=== PATIENT | male | born 1960 | race African-American/Black ===

== ENCOUNTER 2017-03-19 13:14 | Inpatient (IN) | payer OTHER ==
[2017-03-19 17:15] VITALS: BMI 27.9
[2017-03-19] MEDS ORDERED: MAGNESIUM CITRATE 300 ML BOTTLE PO PRN (18:44)
[2017-03-19] MEDS ORDERED: MAG HYDROX/AL HYDROX/SIMETH 30 ML UNIT-DOSE CUP PO PRN (18:44)
[2017-03-19] MEDS ORDERED: ACETAMINOPHEN 325 MG TABLET (FP) PO PRN (18:44)
[2017-03-19] MEDS ORDERED: NICOTINE POLACRILEX 2 MG GUM BC PRN (18:44)
[2017-03-19] MEDS ORDERED: IBUPROFEN 400 MG TABLET (FP) PO PRN (18:44)
[2017-03-19] MEDS ORDERED: MENTHOL/PHENOL 1 EACH UD MM PRN (18:44)
[2017-03-19] MEDS ORDERED: guaiFENesin/D-METHORPHAN HB 10 ML UNIT-DOSE CUPS PO PRN (18:44)
[2017-03-19] MEDS ORDERED: chlordiazePOXIDE HCL 25 MG CAPSULE PO PRN (18:44)
[2017-03-19] MEDS ORDERED: P-EPHED 60MG/TRIPROLIDI 2.5MG TABLET PO PRN (18:44)
[2017-03-19] MEDS ORDERED: MAGNESIUM HYDROX 2400MG/30ML ORAL SUSPENSION 30 ML CUP PO PRN (18:44)
[2017-03-19] MEDS ORDERED: LOPERAMIDE HCL 2 MG CAPSULE PO PRN (18:44)
--- NOTE | 2017-03-19 18:44 | HP ---
CIWA Score - CIWA Score Nausea/Vomitin-Mild Nausea/No Vomiting Muscle Tremors: 4-Moderate,w/Arms Extend Anxiety: 4-Mod. Anxious/Guarded Agitation: 4-Moderately Restless Paroxysmal Sweats: 1-Minimal Palms Moist Orientation: 0-Oriented Tacttile Disturbances: 1-Very Mild Itch/Numbness Auditory Disturbances: 0-None Visual Disturbances: 0-None Headache: 1-Very Mild CIWA-Ar Total Score: 16 Admission ROS BHS - HPI Chief Complaint: withdrawal sx Allergies/Adverse Reactions: Allergies Allergy/AdvReac Type Severity Reaction Status Date / Time No Known Allergies Allergy Verified 03/19/17 18:38 History of Present Illness: 56 years old male with long history of alcohol nicotine dependence has hypertension positive ppd is admitted to detox Exam Limitations: No Limitations - Ebola screening Have you traveled outside of the country in the last 21 days: No Have you had contact with anyone from an Ebola affected area: No Have you been sick,other than usual withdrawal symptoms: No Do you have a fever: No - Review of Systems Constitutional: Changes in sleep, Weight Stable EENT: reports: Blurred Vision (eye glasses) Respiratory: reports: No Symptoms reported Cardiac: reports: No Symptoms Reported GI: reports: Nausea, Poor Fluid Intake, Abdominal cramping : reports: No Symptoms Reported Musculoskeletal: reports: Joint Pain (right knee) Integumentary: reports: No Symptoms Reported Neuro: reports: Tremors Endocrine: reports: No Symptoms Reported Hematology: reports: No Symptoms Reported Psychiatric: reports: Judgement Intact, Mood/Affect Appropiate, Orientated x3 Other Systems: Reviewed and Negative Patient History - Patient Medical History Hx Anemia: Yes (IN THE PAST) Hx Asthma: No Hx Chronic Obstructive Pulmonary Disease (COPD): No Hx Cancer: No Hx Cardiac Disorders: No Hx Hypertension: Yes (not currently on meds.) Hx Hypercholesterolemia: No Hx Pacemaker: No HX Cerebrovascular Accident: No Hx Seizures: No Hx Dementia: No Hx Diabetes: No Hx Gastrointestinal Disorders: No Hx Liver Disease: No Hx Genitourinary Disorders: No Hx Sexually Transmitted Disorders: No Hx Renal Disease (ESRD): No Hx Thyroid Disease: No Hx Human Immunodeficiency Virus (HIV): No (NEGATIVE HX) Hx Hepatitis C: No Hx Depression: No Hx Suicide Attempt: No Hx Bipolar Disorder: No Hx Schizophrenia: No - Patient Surgical History Past Surgical History: No Hx Neurologic Surgery: No Hx Cataract Extraction: No Hx Cardiac Surgery: No Hx Lung Surgery: No Hx Breast Surgery: No Hx Breast Biopsy: No Hx Abdominal Surgery: No Hx Appendectomy: No Hx Cholecystectomy: No Hx Genitourinary Surgery: No Hx Orthopedic Surgery: No - PPD History Previous Implant?: Yes Documented Results: Positive w/o proof Implanted On Prior [facility] Admission?: No Results: CXR(-)01/25/15 PPD to be Administered?: No - Smoking Cessation Smoking history: Current every day smoker Have you smoked in the past 12 months: Yes Aproximately how many cigarettes per day: 10 Cigars Per Day: 0 Hx Chewing Tobacco Use: No Initiated information on smoking cessation: Yes 'Breaking Loose' booklet given: 03/19/17 - Substance & Tx. History Hx Alcohol Use: Yes Hx Substance Use: Yes Substance Use Type: Alcohol, Cocaine Hx Substance Use Treatment: Yes (08/2016 [facility] - Substances Abused Alcohol-vodka/beer Route: Oral Frequency: Daily Amount used: 2 pts./2 (40 oz.) Age of first use: 19 Date of Last Use: 03/18/17 Family Disease History - Family Disease History Family Disease History: Other: Father (HTN), Mother (HTN-), Brother (HTN ) Admission Physical Exam S - Vital Signs Vital Signs: Vital Signs - 24 hr 03/19/17 17:14 Temperature 98.8 F Pulse Rate 73 Respiratory 18 Rate Blood Pressure 158/102 - Physical General Appearance: Yes: Nourished, Appropriately Dressed, Mild Distress, Tremorous, Irritable, Sweating, Anxious HEENTM: Yes: Hearing grossly Normal, Normal ENT Inspection, Normocephalic, Normal Voice Respiratory: Yes: Chest Non-Tender, Lungs Clear, Normal Breath Sounds, No Respiratory Distress, No Accessory Muscle Use Neck: Yes: Supple, Trachea in good position Breast: Yes: Breasts Symetrical Cardiology: Yes: Regular Rhythm, Regular Rate, S1, S2 Abdominal: Yes: Normal Bowel Sounds, Non Tender, Soft Genitourinary: Yes: Within Normal Limits Back: Yes: Normal Inspection Musculoskeletal: Yes: full range of Motion, Gait Steady Extremities: Yes: Normal Capillary Refill, Normal Inspection, Normal Range of Motion, Non-Tender, Tremors Neurological: Yes: Fully Oriented, Alert, Motor Strength 5/5, Normal Mood/Affect , Normal Response Integumentary: Yes: Warm Lymphatic: Yes: Within Normal Limits - Diagnostic (1) Alcohol dependence with uncomplicated withdrawal Current Visit: Yes Status: Acute (2) Nicotine dependence Current Visit: Yes Status: Acute Qualifiers: Nicotine product type: cigarettes Substance use status: in withdrawal Qualified Code(s): F17.213 - Nicotine dependence, cigarettes, with withdrawal (3) Essential hypertension Current Visit: Yes Status: Chronic Cleared for Admission [facility] - Detox or Rehab [facility] Level of Care: Medically Managed Detox Regimen/Protocol: Librium [facility] Breath Alcohol Content Breath Alcohol Content: 0 Urine Drug Screen - Results Drug Screen Negative: No Urine Drug Screen Results: EVETTE-Cocaine
[2017-03-19] MEDS ORDERED: cloNIDine HCL 0.1 MG TABLET PO PRN (18:46)
[2017-03-19 23:19] LABS: URINE APPEARANCE CLEAR; URINE BILIRUBIN NEGATIVE (NEGATIVE); URINE BLOOD NEGATIVE (NEGATIVE); URINE COLOR YELLOW; URINE GLUCOSE (UA) NEGATIVE (NEGATIVE); URINE KETONE NEGATIVE (NEGATIVE); URINE LEUK ESTERASE NEGATIVE (NEGATIVE); URINE NITRITE NEGATIVE (NEGATIVE); URINE PROTEIN NEGATIVE (NEGATIVE); URINE UROBILINOGEN NEGATIVE mg/dL (0.2-1.0)
[2017-03-19] MEDS: MINERAL OIL/PETROLAT/WATER TOPICAL CREAM 113 GM JAR TP SCH (23:31)
[2017-03-19] MEDS: chlordiazePOXIDE HCL 25 MG CAPSULE PO SCH (23:31)
[2017-03-19] MEDS: THIAMINE HCL 100 MG TABLET (FP) PO SCH (23:31)
[2017-03-20] MEDS: chlordiazePOXIDE HCL 25 MG CAPSULE PO SCH ×4 (06:02→23:13)
--- NOTE | 2017-03-20 09:25 | PN ---
S CIWA - CIWA Score Nausea/Vomitin Muscle Tremors: 3 Anxiety: 3 Agitation: 3 Paroxysmal Sweats: 3 Orientation: 0-Oriented Tacttile Disturbances: 1-Very Mild Itch/Numbness Auditory Disturbances: 0-None Visual Disturbances: 0-None Headache: 1-Very Mild CIWA-Ar Total Score: 17 S Progress Note (SOAP) Subjective: nausea, sweats, interrupetd sleep, anxiety, tremors Objective: 03/20/17 09:24 Vital Signs - 8 hr 03/20/17 03/20/17 03:30 05:44 Temperature 96.4 F L Pulse Rate 66 Respiratory 18 16 Rate Blood Pressure 129/75 Laboratory Tests 03/19/17 21:23 Urine Color Yellow Urine Appearance Clear Urine pH 6.0 Ur Specific [place] 1.020 Urine Protein Negative Urine Glucose (UA) Negative Urine Ketones Negative Urine Blood Negative Urine Nitrite Negative Urine Bilirubin Negative Urine Urobilinogen Negative labs still pending Assessment: 03/20/17 09:25 withdrawal sx cont detox, check labs, fluids, encourage ambualtion
[2017-03-20 10:35] LABS: ALBUMIN 3.1 g/dl (3.4-5.0); ALK PHOS 86 U/L (45-117); ANION GAP 6 (8-16); CALCIUM 8.5 mg/dL (8.5-10.1); CO2 28 mmol/L (21-32); CREATININE 1.2 mg/dL (0.7-1.3); GLUCOSE,RANDOM 94 mg/dL (74-106); SGOT/AST 19 U/L (15-37); SGPT/ALT 29 U/L (12-78); TOT PROT 6.3 g/dl (6.4-8.2)
[2017-03-20] MEDS: PRENATAL VITAMINS W/ FOLIC ACID TABLET (FP) PO SCH (10:42)
[2017-03-20] MEDS: NICOTINE 14 MG/24 HOURS TOPICAL PATCH TD SCH (10:42)
[2017-03-20 10:49] LABS: MCH 22.7 pg (25.7-33.7); MCHC 30.6 g/dl (32.0-35.9); MEAN CELL VOLUME 74.3 fl (80-96); MEAN PLT VOLUME 9.9 fl (7.5-11.1); PLATELET COUNT 217 K/MM3 (134-434); RDW 15.3 % (11.9-15.9); WHITE BLOOD COUNT 8.3 K/mm3 (4.0-10.0)
--- NOTE | 2017-03-20 13:03 | EKG ---
Test Reason : Blood Pressure : / mmHG Vent. Rate : 060 BPM Atrial Rate : 060 BPM P-R Int : 146 ms QRS Dur : 082 ms QT Int : 434 ms P-R-T Axes : 032 035 022 degrees QTc Int : 434 ms NORMAL SINUS RHYTHM NORMAL ECG NO PREVIOUS ECGS AVAILABLE Confirmed by DENISE SNYDER MD ([id number]) on 03/20/2017 1:02:46 PM Referred By: Ashleigh ANGUIANO Confirmed By:DENISE SNYDER MD
[2017-03-20 18:39] LABS: URINE LEUK ESTERASE Negative (NEGATIVE)
[2017-03-20] MEDS: MINERAL OIL/PETROLAT/WATER TOPICAL CREAM 113 GM JAR TP SCH (22:55)
[2017-03-20] MEDS: THIAMINE HCL 100 MG TABLET (FP) PO SCH (23:25)
[2017-03-21] MEDS: chlordiazePOXIDE HCL 25 MG CAPSULE PO SCH ×3 (06:24→17:59)
[2017-03-21] MEDS: NICOTINE 14 MG/24 HOURS TOPICAL PATCH TD SCH (11:02)
[2017-03-21] MEDS: PRENATAL VITAMINS W/ FOLIC ACID TABLET (FP) PO SCH (11:02)
--- NOTE | 2017-03-21 15:33 | PN ---
[facility] CIWA - CIWA Score Nausea/Vomitin-Mild Nausea/No Vomiting Muscle Tremors: 4-Moderate,w/Arms Extend Anxiety: 4-Mod. Anxious/Guarded Agitation: 4-Moderately Restless Paroxysmal Sweats: 3 Orientation: 0-Oriented Tacttile Disturbances: 1-Very Mild Itch/Numbness Auditory Disturbances: 0-None Visual Disturbances: 0-None Headache: 1-Very Mild CIWA-Ar Total Score: 18 BHS Progress Note (SOAP) Subjective: Anxious, sweating, interrupted sleep, nausea Objective: 03/21/17 15:33 Last Vital Signs Temp Pulse Resp BP Pulse Ox 98.1 F 74 18 150/87 03/21/17 13:55 03/21/17 13:55 03/21/17 13:55 03/21/17 13:55 Laboratory Tests 03/19/17 03/20/17 03/20/17 21:23 07:54 07:54 WBC 8.3 RBC 4.91 Hgb 11.1 L D Hct 36.5 MCV 74.3 L MCH 22.7 L MCHC 30.6 L RDW 15.3 Plt Count 217 MPV 9.9 Sodium 141 Potassium 3.9 Chloride 107 Carbon Dioxide 28 Anion Gap 6 L BUN 17 Creatinine 1.2 Creat Clearance w eGFR > 60 Random Glucose 94 D Calcium 8.5 Total Bilirubin 1.0 D AST 19 D ALT 29 D Alkaline Phosphatase 86 Total Protein 6.3 L D Albumin 3.1 L D Urine Color Yellow Urine Appearance Clear Urine pH 6.0 Ur Specific [place] 1.020 Urine Protein Negative Urine Glucose (UA) Negative Urine Ketones Negative Urine Blood Negative Urine Nitrite Negative Urine Bilirubin Negative Urine Urobilinogen Negative Ur Leukocyte Esterase Negative RPR Titer 03/20/17 07:54 WBC RBC Hgb Hct MCV MCH MCHC RDW Plt Count MPV Sodium Potassium Chloride Carbon Dioxide Anion Gap BUN Creatinine Creat Clearance w eGFR Random Glucose Calcium Total Bilirubin AST ALT Alkaline Phosphatase Total Protein Albumin Urine Color Urine Appearance Urine pH Ur Specific [place] Urine Protein Urine Glucose (UA) Urine Ketones Urine Blood Urine Nitrite Urine Bilirubin Urine Urobilinogen Ur Leukocyte Esterase RPR Titer Nonreactive Labs noted Assessment: 03/21/17 15:35 Withdrawal symptoms Plan: Continue detox Encouraged to drink lots of water
[2017-03-21] MEDS: chlordiazePOXIDE 5 MG CAPSULE PO SCH (23:05)
[2017-03-21] MEDS: MINERAL OIL/PETROLAT/WATER TOPICAL CREAM 113 GM JAR TP SCH (23:05)
[2017-03-21] MEDS: THIAMINE HCL 100 MG TABLET (FP) PO SCH (23:06)
[2017-03-22] MEDS: chlordiazePOXIDE 5 MG CAPSULE PO SCH ×3 (06:18→18:45)
[2017-03-22] MEDS: NICOTINE 14 MG/24 HOURS TOPICAL PATCH TD SCH (10:47)
[2017-03-22] MEDS: PRENATAL VITAMINS W/ FOLIC ACID TABLET (FP) PO SCH (10:47)
--- NOTE | 2017-03-22 14:48 | PN ---
S Progress Note (SOAP) Subjective: Sweating, anxious, nausea Objective: 03/22/17 14:45 Last Vital Signs Temp Pulse Resp BP Pulse Ox 98.1 F 78 18 140/100 03/22/17 14:40 03/22/17 14:40 03/22/17 14:40 03/22/17 14:40 htn noted Laboratory Tests 03/19/17 03/20/17 03/20/17 21:23 07:54 07:54 WBC 8.3 RBC 4.91 Hgb 11.1 L D Hct 36.5 MCV 74.3 L MCH 22.7 L MCHC 30.6 L RDW 15.3 Plt Count 217 MPV 9.9 Sodium 141 Potassium 3.9 Chloride 107 Carbon Dioxide 28 Anion Gap 6 L BUN 17 Creatinine 1.2 Creat Clearance w eGFR > 60 Random Glucose 94 D Calcium 8.5 Total Bilirubin 1.0 D AST 19 D ALT 29 D Alkaline Phosphatase 86 Total Protein 6.3 L D Albumin 3.1 L D Urine Color Yellow Urine Appearance Clear Urine pH 6.0 Ur Specific [place] 1.020 Urine Protein Negative Urine Glucose (UA) Negative Urine Ketones Negative Urine Blood Negative Urine Nitrite Negative Urine Bilirubin Negative Urine Urobilinogen Negative Ur Leukocyte Esterase Negative RPR Titer 03/20/17 07:54 WBC RBC Hgb Hct MCV MCH MCHC RDW Plt Count MPV Sodium Potassium Chloride Carbon Dioxide Anion Gap BUN Creatinine Creat Clearance w eGFR Random Glucose Calcium Total Bilirubin AST ALT Alkaline Phosphatase Total Protein Albumin Urine Color Urine Appearance Urine pH Ur Specific [place] Urine Protein Urine Glucose (UA) Urine Ketones Urine Blood Urine Nitrite Urine Bilirubin Urine Urobilinogen Ur Leukocyte Esterase RPR Titer Nonreactive Labs noted Assessment: 03/22/17 14:46 Withdrawal symptoms Noted with htn, is on clonidine prn Plan: Continue detox Encouraged to drink lots of water HTN: patient has h/o htn, will d/c prn clonidine, give clonidine 0.1mg PO x 1 dose, start norvasc 5mg PO daily in AM
[2017-03-22] MEDS ORDERED: cloNIDine HCL 0.1 MG TABLET PO ONE (14:50)
[2017-03-22] MEDS: MINERAL OIL/PETROLAT/WATER TOPICAL CREAM 113 GM JAR TP SCH (22:45)
[2017-03-22] MEDS: THIAMINE HCL 100 MG TABLET (FP) PO SCH (22:46)
[2017-03-22] MEDS: chlordiazePOXIDE HCL 10 MG CAPSULE PO SCH (22:46)
[2017-03-23] MEDS: chlordiazePOXIDE HCL 10 MG CAPSULE PO SCH ×2 (07:54→10:15)
[2017-03-23] MEDS ORDERED: amLODIPine BESYLATE 5 MG TABLET (FP) PO SCH (10:00)
[2017-03-23] MEDS: NICOTINE 14 MG/24 HOURS TOPICAL PATCH TD SCH (10:14)
[2017-03-23] MEDS: PRENATAL VITAMINS W/ FOLIC ACID TABLET (FP) PO SCH (10:14)
[2017-03-23 11:02] VITALS: BP 144/97; PULSE 68; TEMP 98.1
--- NOTE | 2017-03-23 12:09 | DS ---
[facility] Detox Discharge Summary Admission Date: 03/19/17 Discharge Date: 03/23/17 - History Present History: Alcohol Dependence, Cocaine Dependence - Physical Exam Results Vital Signs: Vital Signs Temperature 98.1 F 03/23/17 10:00 Pulse Rate 68 03/23/17 10:00 Respiratory Rate 18 03/23/17 10:00 Blood Pressure 144/97 03/23/17 10:00 O2 Sat by Pulse Oximetry (%) Pertinent Admission Physical Exam Findings: Withdrawal sx Laboratory Last Values WBC 8.3 K/mm3 (4.0-10.0) 03/20/17 07:54 RBC 4.91 M/mm3 (4.00-5.60) 03/20/17 07:54 Hgb 11.1 GM/dL (11.7-16.9) L D 03/20/17 07:54 Hct 36.5 % (35.4-49) 03/20/17 07:54 MCV 74.3 fl (80-96) L 03/20/17 07:54 MCH 22.7 pg (25.7-33.7) L 03/20/17 07:54 MCHC 30.6 g/dl (32.0-35.9) L 03/20/17 07:54 RDW 15.3 % (11.9-15.9) 03/20/17 07:54 Plt Count 217 K/MM3 (134-434) 03/20/17 07:54 MPV 9.9 fl (7.5-11.1) 03/20/17 07:54 Sodium 141 mmol/L (136-145) 03/20/17 07:54 Potassium 3.9 mmol/L (3.5-5.1) 03/20/17 07:54 Chloride 107 mmol/L (98-107) 03/20/17 07:54 Carbon Dioxide 28 mmol/L (21-32) 03/20/17 07:54 Anion Gap 6 (8-16) L 03/20/17 07:54 BUN 17 mg/dL (7-18) 03/20/17 07:54 Creatinine 1.2 mg/dL (0.7-1.3) 03/20/17 07:54 Creat Clearance w eGFR > 60 (>60) 03/20/17 07:54 Random Glucose 94 mg/dL (74-106) D 03/20/17 07:54 Calcium 8.5 mg/dL (8.5-10.1) 03/20/17 07:54 Total Bilirubin 1.0 mg/dL (0.2-1.0) D 03/20/17 07:54 AST 19 U/L (15-37) D 03/20/17 07:54 ALT 29 U/L (12-78) D 03/20/17 07:54 Alkaline Phosphatase 86 U/L (45-117) 03/20/17 07:54 Total Protein 6.3 g/dl (6.4-8.2) L D 03/20/17 07:54 Albumin 3.1 g/dl (3.4-5.0) L D 03/20/17 07:54 Urine Color Yellow 03/19/17 21:23 Urine Appearance Clear 03/19/17 21:23 Urine pH 6.0 (5.0-8.0) 03/19/17 21:23 Ur Specific [place] 1.020 (1.001-1.035) 03/19/17 21:23 Urine Protein Negative (NEGATIVE) 03/19/17 21:23 Urine Glucose (UA) Negative (NEGATIVE) 03/19/17 21:23 Urine Ketones Negative (NEGATIVE) 03/19/17 21:23 Urine Blood Negative (NEGATIVE) 03/19/17 21:23 Urine Nitrite Negative (NEGATIVE) 03/19/17 21:23 Urine Bilirubin Negative (NEGATIVE) 03/19/17 21:23 Urine Urobilinogen Negative mg/dL (0.2-1.0) 03/19/17 21:23 Ur Leukocyte Esterase Negative (NEGATIVE) 03/19/17 21:23 RPR Titer Nonreactive (NONREACTIVE) 03/20/17 07:54 labs noted - Treatment Hospital Course: Detox Protocol Followed, Detoxed Safely, Responded well, Discharged Condition Good, Rehab Referral Accepted Patient has Accepted a Rehab Referral to: Rehab @ [facility] - Medication Discharge Medications: Ambulatory Orders Amlodipine Besylate [Norvasc -] 5 mg PO DAILY 03/23/17 - Diagnosis (1) Alcohol dependence with uncomplicated withdrawal Status: Acute (2) Cocaine dependence with withdrawal Status: Chronic (3) Essential hypertension Status: Chronic - AMA Did Patient Leave Against Medical Advice: No
== END 2017-03-23 10:15 | disposition other institution (70) | DRG 774 ==
LOC: YASAS 13:14 → Y6N 18:59
PROVIDERS: ADMIT Internal Medicine; ATTEND Internal Medicine
PROC: HZ2ZZZZ Detoxification Services for Substance Abuse Treatment (ICD-10-PCS; principal; 2017-03-19)
DX: F10.230 Alcohol dependence with withdrawal, uncomplicated (principal); F14.20 Cocaine dependence, uncomplicated; F17.213 Nicotine dependence, cigarettes, with withdrawal; I10 Essential (primary) hypertension; K21.9 Gastro-esophageal reflux disease without esophagitis; Z86.2 Personal history of diseases of the blood and blood-forming organs and certain disorders involving the immune mechanism
CPT/HCPCS: 36415; 71020-TC; 80053; 81003; 85027; 86593; 93005; 93010

== ENCOUNTER 2017-03-23 11:29 | Inpatient (IN) | payer OTHER ==
[2017-03-23] MEDS ORDERED: MAGNESIUM HYDROX 2400MG/30ML ORAL SUSPENSION 30 ML CUP PO PRN (11:45)
[2017-03-23] MEDS ORDERED: MENTHOL/PHENOL 1 EACH UD MM PRN (11:45)
[2017-03-23] MEDS ORDERED: ACETAMINOPHEN 325 MG TABLET (FP) PO PRN (11:45)
[2017-03-23] MEDS ORDERED: MAG HYDROX/AL HYDROX/SIMETH 30 ML UNIT-DOSE CUP PO PRN (11:45)
[2017-03-23] MEDS ORDERED: guaiFENesin/D-METHORPHAN HB 10 ML UNIT-DOSE CUPS PO PRN (11:45)
[2017-03-23] MEDS ORDERED: NICOTINE POLACRILEX 2 MG GUM BUC PRN (11:45)
[2017-03-23] MEDS ORDERED: IBUPROFEN 400 MG TABLET (FP) PO PRN (11:45)
[2017-03-23] MEDS ORDERED: LOPERAMIDE HCL 2 MG CAPSULE PO PRN (11:45)
[2017-03-23] MEDS ORDERED: MAGNESIUM CITRATE 300 ML BOTTLE PO PRN (11:45)
--- NOTE | 2017-03-23 12:03 | HP ---
[facility] Rehab Assess/Revision - Admission History Admitted to Rehab from: [facility] Date of Admission to Rehab: 03/23/17 - Vital signs Vital Signs: Vital Signs Period Temp Pulse Resp BP Sys/Hines Pulse Ox Last 24 Hr 98.2 F 73 18 138/97 - Findings Detox History & Physical reviewed: Yes Concur with findings: Yes Inpatient Rehab Admission - Initial Determination Are CD services needed?: Yes Free of communicable disease: Yes Not in need of hospitalization: Yes - Rehab Admission Criteria Previous failed treatment: Yes Poor recovery environment: Yes Comorbidities: Yes Lacks judgement: Yes Patient is meeting Inpatient Rehab admission criteria:: Yes
[2017-03-23 12:12] VITALS: BMI 28.5
[2017-03-23] MEDS: THIAMINE HCL 100 MG TABLET (FP) PO SCH (21:52)
[2017-03-24] MEDS: P-EPHED 60MG/TRIPROLIDI 2.5MG TABLET PO PRN (06:59)
[2017-03-24] MEDS: amLODIPine BESYLATE 10 MG TABLET (FP) PO SCH ×2 (08:41→10:41)
[2017-03-24] MEDS: PRENATAL VITAMINS W/ FOLIC ACID TABLET (FP) PO SCH (10:41)
[2017-03-24] MEDS: NICOTINE 14 MG/24 HOURS TOPICAL PATCH TD SCH (10:41)
--- NOTE | 2017-03-24 14:38 | HP ---
Psychiatrist Admission - Data Date of interview: 03/24/17 Admission source: 6N Identifying data: This is the first [facility] admission for this 56 years old Black male, unemployed with no source of income, homeless Medical History: Significant for hypertension, PPD+, GERD and a history of treatment for anemia and of right knee injury 5 years ago. Smokes 10 cigarettes daily Psychiatric History: Denies history of previous psychiatric treatment Physical/Sexual Abuse/Trauma History: Denies history of verbal, physical or sexual abuse as wel as DV relationship. Additional Comment: Denies criminal history Vital Signs: Vital Signs - 24 hr 03/24/17 03/24/17 03/24/17 00:30 03:30 07:11 Temperature 98.3 F Pulse Rate 71 Respiratory 18 16 18 Rate Blood Pressure 145/91 03/24/17 03/24/17 10:00 11:20 Temperature Pulse Rate 76 78 Respiratory 16 Rate Blood Pressure 161/107 148/100 Allergies/Adverse Reactions: Allergies Allergy/AdvReac Type Severity Reaction Status Date / Time No Known Allergies Allergy Verified 03/19/17 18:38 Date of last physical exam: 03/19/17 Concur with the findings of this exam: Yes - Substance Abuse/Tx History Hx Alcohol Use: Yes Hx Substance Use: No Substance Use Type: Alcohol (Started drinking alcohol at age 19, consumes 2x 40oz of beer daily) Hx Substance Use Treatment: Yes (2-3 previous inpt detox & 2 inpt rehab) Mental Status Exam - Mental Status Exam Alert and Oriented to: Time, Place, Person Cognitive Function: Fair Patient Appearance: Well Groomed Mood: Hopeful, Euthymic Patient Behavior: Cooperative Speech Pattern: Clear Voice Loudness: Normal Thought Process: Intact, Goal Oriented Thought Disorder: Not Present Hallucinations: Denies Suicidal Ideation: Denies Homicidal Ideation: Denies Insight/Judgement: Fair Sleep: Poorly Muscle strength/Tone: Normal Gait/Station: Normal Psychiatric Findings - Problem List ([place] 1, 2,3) (1) Alcohol dependence Current Visit: Yes Status: Acute (2) Nicotine dependence Current Visit: No Status: Chronic Qualifiers: Nicotine product type: cigarettes Substance use status: in withdrawal Qualified Code(s): F17.213 - Nicotine dependence, cigarettes, with withdrawal (3) Alcohol-induced sleep disorder Current Visit: Yes Status: Acute (4) Essential hypertension Current Visit: No Status: Chronic (5) GERD (gastroesophageal reflux disease) Current Visit: No Status: Chronic Qualifiers: Esophagitis presence: without esophagitis Qualified Code(s): K21.9 - Gastro -esophageal reflux disease without esophagitis (6) History of anemia Current Visit: No Status: Chronic - Initial Treatment Plan Initial Treatment Plan: 1) Start Belsomra 10 mg po HS prn for insomnia. 2) Monitor progress
[2017-03-24] MEDS: THIAMINE HCL 100 MG TABLET (FP) PO SCH (21:13)
[2017-03-24] MEDS: SUVOREXANT 10 MG TABLET PO PRN (21:15)
[2017-03-25] MEDS: P-EPHED 60MG/TRIPROLIDI 2.5MG TABLET PO PRN (06:34)
[2017-03-25 06:48] VITALS: TEMP 98.2
[2017-03-25] MEDS: PRENATAL VITAMINS W/ FOLIC ACID TABLET (FP) PO SCH (09:45)
[2017-03-25] MEDS: amLODIPine BESYLATE 10 MG TABLET (FP) PO SCH (09:45)
[2017-03-25] MEDS: NICOTINE 14 MG/24 HOURS TOPICAL PATCH TD SCH (09:46)
[2017-03-25] MEDS: SUVOREXANT 10 MG TABLET PO PRN (22:03)
[2017-03-25] MEDS: THIAMINE HCL 100 MG TABLET (FP) PO SCH (22:03)
[2017-03-26] MEDS: PRENATAL VITAMINS W/ FOLIC ACID TABLET (FP) PO SCH (09:48)
[2017-03-26] MEDS: amLODIPine BESYLATE 10 MG TABLET (FP) PO SCH (09:49)
[2017-03-26] MEDS: NICOTINE 14 MG/24 HOURS TOPICAL PATCH TD SCH (09:49)
[2017-03-26] MEDS: P-EPHED 60MG/TRIPROLIDI 2.5MG TABLET PO PRN (09:50)
[2017-03-26 10:18] VITALS: BP 153/78; PULSE 77
--- NOTE | 2017-03-26 14:53 | PN ---
S Progress Note (SOAP) Subjective: Patient seen for c/o right knee pain. As per patient, he has torn meniscus and ligament in his knee and needs surgery a long time ago but he continues to work and ignore it. He reports having physical therapy in the past which works minimally as per patient. Patient is requesting mirtha bandage at this time and no longer requesting a cane. As per patient, his knee hurts whenever he bears weight on it. Objective: 03/26/17 14:50 Last Vital Signs Temp Pulse Resp BP Pulse Ox 98.2 F 77 18 153/78 03/26/17 06:50 03/26/17 09:30 03/26/17 06:50 03/26/17 09:30 Laboratory Tests 03/24/17 07:45 HIV 1&2 Antibody Screen Negative HIV P24 Antigen Negative Labs noted PE: right knee mild swelling Gait: slight limping noted Assessment: 03/26/17 14:51 Patient seen for right knee pain Plan: Right knee pain: mirtha bandage ordered at patient's request, encouraged motrin prn. Encouraged to follow up with his PCP and Orthopedist and to resume physical therapy post discharge.
== END 2017-03-26 15:50 | disposition left against medical advice (07) | DRG 58 ==
LOC: Y3W 11:29
PROVIDERS: ADMIT Psychiatry & Neurology Psychiatry; ATTEND Psychiatry & Neurology Psychiatry
PROC: HZ42ZZZ Group Counseling for Substance Abuse Treatment, Cognitive-Behavioral (ICD-10-PCS; principal; 2017-03-23)
DX: F10.282 Alcohol dependence with alcohol-induced sleep disorder (principal); F17.213 Nicotine dependence, cigarettes, with withdrawal; I10 Essential (primary) hypertension; K21.9 Gastro-esophageal reflux disease without esophagitis; M25.561 Pain in right knee; Z86.2 Personal history of diseases of the blood and blood-forming organs and certain disorders involving the immune mechanism
CPT/HCPCS: 36415; 87389

== ENCOUNTER 2017-05-05 07:00 | Inpatient (IN) | payer OTHER ==
--- NOTE | 2017-05-05 17:36 | HP ---
CIWA Score - CIWA Score Nausea/Vomitin-Mild Nausea/No Vomiting Muscle Tremors: 3 Anxiety: 3 Agitation: 3 Paroxysmal Sweats: 1-Minimal Palms Moist Orientation: 1-Uncertain about Date Tacttile Disturbances: 0-None Auditory Disturbances: 0-None Visual Disturbances: 0-None Headache: 1-Very Mild CIWA-Ar Total Score: 13 Admission ROS BHS - HPI Allergies/Adverse Reactions: Allergies Allergy/AdvReac Type Severity Reaction Status Date / Time No Known Allergies Allergy Verified 03/19/17 18:38 History of Present Illness: 56 y/o male here for detox from Alcohol and crack cocaine. Pt has a prolonged hx of substances and alcohol abuse. Pt endorses 9 years of sobriety because he relocated to areas with less negative influences. pt has had previous rehab and detox experiences. Hx of HTN, R knee torn meniscus Exam Limitations: No Limitations - Ebola screening Have you traveled outside of the country in the last 21 days: No Have you had contact with anyone from an Ebola affected area: No Have you been sick,other than usual withdrawal symptoms: No Do you have a fever: No - Review of Systems Constitutional: No Symptoms Reported EENT: reports: Nose Congestion Respiratory: reports: No Symptoms reported Cardiac: reports: No Symptoms Reported GI: reports: Nausea : reports: No Symptoms Reported Musculoskeletal: reports: No Symptoms Reported Integumentary: reports: No Symptoms Reported Endocrine: reports: [place] Hematology: reports: No Symptoms Reported Psychiatric: reports: No Sypmtoms Reported Patient History - Patient Medical History Hx Anemia: Yes (IN THE PAST) Hx Asthma: No Hx Chronic Obstructive Pulmonary Disease (COPD): No Hx Cancer: No Hx Cardiac Disorders: No Hx Hypertension: Yes (on Norvasc 10 mg. last taken a week ago) Hx Hypercholesterolemia: No Hx Pacemaker: No HX Cerebrovascular Accident: No Hx Seizures: No Hx Dementia: No Hx Diabetes: No Hx Gastrointestinal Disorders: No Hx Liver Disease: No Hx Genitourinary Disorders: No Hx Sexually Transmitted Disorders: No Hx Renal Disease (ESRD): No Hx Thyroid Disease: No Hx Human Immunodeficiency Virus (HIV): No (NEGATIVE HX) Hx Hepatitis C: No Hx Depression: No Hx Suicide Attempt: No Hx Bipolar Disorder: No Hx Schizophrenia: No - Patient Surgical History Past Surgical History: No Hx Neurologic Surgery: No Hx Cataract Extraction: No Hx Cardiac Surgery: No Hx Lung Surgery: No Hx Breast Surgery: No Hx Breast Biopsy: No Hx Abdominal Surgery: No Hx Appendectomy: No Hx Cholecystectomy: No Hx Genitourinary Surgery: No Hx Section: No Hx Orthopedic Surgery: No Anesthesia Reaction: No - PPD History Previous Implant?: Yes Documented Results: Positive w/o proof (Stated he was exposed in 1977 and was treated with INH. Now gets Xrays) Implanted On Prior [facility] Admission?: No Date: 04/03/17 (In [place], unsure of date) Results: CXR recent PPD to be Administered?: No - Reproductive History Patient is a Female of Child Bearing Age (11 -55 yrs old): No - Smoking Cessation Smoking history: Current every day smoker Have you smoked in the past 12 months: Yes Aproximately how many cigarettes per day: 10 Cigars Per Day: 0 Hx Chewing Tobacco Use: No Initiated information on smoking cessation: Yes 'Breaking Loose' booklet given: 05/05/17 - Substance & Tx. History Hx Alcohol Use: Yes Hx Substance Use: Yes (crack cocaine) Substance Use Type: Cocaine (crack cocaine - ) Hx Substance Use Treatment: Yes - Substances Abused Alcohol Route: Oral Frequency: Daily Amount used: 2 -3 (6 packs of 18oz beers), Ocassional 2 - 3 pints of vodka daily Age of first use: 19 Date of Last Use: 05/04/17 (was seen at [facility] for it) Crack Route: Inhalation Frequency: Daily Amount used: 4 - 5 grams (10 bags) Age of first use: 19 Date of Last Use: 05/04/17 Alprazolam (Xanax) Route: Oral Frequency: 3-6 times per week Amount used: 2 tabs Age of first use: 55 Date of Last Use: 04/27/17 Family Disease History - Family Disease History Family Disease History: Other: Father (HTN - ), Mother (HTN- ( stomach Ca)), Brother (HTN), Sister (HTN) Admission Physical Exam [facility] - Physical General Appearance: Yes: Mild Distress HEENTM: Yes: Nasal Congestion Respiratory: Yes: Chest Non-Tender, Lungs Clear, No Respiratory Distress, No Accessory Muscle Use Neck: Yes: No masses,lesions,Nodules Breast: Yes: Breast Exam Deferred Cardiology: Yes: Regular Rhythm, Regular Rate, S1, S2 Abdominal: Yes: Normal Bowel Sounds, Non Tender Genitourinary: Yes: Within Normal Limits Back: Yes: Within Normal Limits Musculoskeletal: Yes: Other (Pain to L foot/ankle, no swelling) Extremities: Yes: Within Normal Limits, Normal Capillary Refill Neurological: Yes: Fully Oriented, Alert Integumentary: Yes: Normal Color, Warm Lymphatic: Yes: Within Normal Limits - Diagnostic (1) Alcohol dependence with uncomplicated withdrawal Status: Acute (2) Cocaine dependence with withdrawal Status: Chronic (3) Essential hypertension Status: Chronic (4) History of anemia Status: Chronic (5) Nicotine dependence Status: Chronic Qualifiers: Nicotine product type: cigarettes Substance use status: in withdrawal Qualified Code(s): F17.213 - Nicotine dependence, cigarettes, with withdrawal Cleared for Admission [facility] - Detox or Rehab [facility] Level of Care: Medically Managed Detox Regimen/Protocol: Librium S Breath Alcohol Content Breath Alcohol Content: 0 Vital Signs - Vital Signs Vital Signs Refused: No Temperature: 96.9 F Temperature Source: Oral Pulse Rate: 81 Respiratory Rate: 20 Blood Pressure: 146/99 BP Location: Right Arm Blood Pressure Position: Sitting - Height Height: 6 ft - Weight Weight: 210 lb Weight Measurement Method: Standing Scale Body Mass Index (BMI): 28.5 Urine Drug Screen - Test Device Lot Number: [id number] Expiration Date: 01/22/19 - Control Is Test Valid: Yes - Results Drug Screen Negative: No Urine Drug Screen Results: EVETTE-Cocaine, BZO-Benzodiazepines
[2017-05-05 17:37] VITALS: BMI 28.5
[2017-05-05] MEDS ORDERED: LOPERAMIDE HCL 2 MG CAPSULE PO PRN (18:14)
[2017-05-05] MEDS ORDERED: IBUPROFEN 400 MG TABLET (FP) PO PRN (18:14)
[2017-05-05] MEDS ORDERED: MAGNESIUM HYDROX 2400MG/30ML ORAL SUSPENSION 30 ML CUP PO PRN (18:14)
[2017-05-05] MEDS ORDERED: MAG HYDROX/AL HYDROX/SIMETH 30 ML UNIT-DOSE CUP PO PRN (18:14)
[2017-05-05] MEDS ORDERED: MAGNESIUM CITRATE 300 ML BOTTLE PO PRN (18:14)
[2017-05-05] MEDS ORDERED: NICOTINE POLACRILEX 2 MG GUM BUC PRN (18:14)
[2017-05-05] MEDS ORDERED: hydrOXYzine PAMOATE 50 MG CAPSULE (FP) PO PRN (18:14)
[2017-05-05] MEDS ORDERED: ACETAMINOPHEN 325 MG TABLET (FP) PO PRN (18:14)
[2017-05-05] MEDS ORDERED: guaiFENesin/D-METHORPHAN HB 10 ML UNIT-DOSE CUPS PO PRN (18:14)
[2017-05-05] MEDS ORDERED: MENTHOL/PHENOL 1 EACH UD MM PRN (18:14)
[2017-05-05] MEDS ORDERED: P-EPHED 60MG/TRIPROLIDI 2.5MG TABLET PO PRN (18:14)
[2017-05-05] MEDS ORDERED: chlordiazePOXIDE HCL 25 MG CAPSULE PO PRN (18:14)
[2017-05-05] MEDS: THIAMINE HCL 100 MG TABLET (FP) PO SCH (23:00)
[2017-05-05] MEDS: chlordiazePOXIDE HCL 25 MG CAPSULE PO SCH (23:00)
[2017-05-06] MEDS: chlordiazePOXIDE HCL 25 MG CAPSULE PO SCH ×4 (05:52→22:08)
[2017-05-06 10:05] LABS: HEMATOCRIT 39.3 % (35.4-49); MCH 22.5 pg (25.7-33.7); MCHC 30.6 g/dl (32.0-35.9); MEAN CELL VOLUME 73.6 fl (80-96); MEAN PLT VOLUME 9.4 fl (7.5-11.1); PLATELET COUNT 223 K/MM3 (134-434); RBC 5.34 M/mm3 (4.00-5.60); RDW 15.3 % (11.9-15.9); WHITE BLOOD COUNT 5.8 K/mm3 (4.0-10.0)
[2017-05-06 10:19] LABS: CHLORIDE 110 mmol/L (98-107); POTASSIUM 4.2 mmol/L (3.5-5.1); SODIUM 144 mmol/L (136-145)
[2017-05-06 10:28] LABS: ALBUMIN 3.5 g/dl (3.4-5.0); ALK PHOS 115 U/L (45-117); ANION GAP 6 (8-16); BILIRUBIN,TOTAL 0.7 mg/dL (0.2-1.0); BLOOD UREA NITROGEN 21 mg/dL (7-18); CALCIUM 8.3 mg/dL (8.5-10.1); CO2 28 mmol/L (21-32); CREATININE 1.4 mg/dL (0.7-1.3); GLUCOSE,RANDOM 74 mg/dL (74-106); SGOT/AST 45 U/L (15-37); SGPT/ALT 42 U/L (12-78); TOT PROT 7.1 g/dl (6.4-8.2)
[2017-05-06] MEDS: PRENATAL VITAMINS W/ FOLIC ACID TABLET (FP) PO SCH (10:58)
[2017-05-06] MEDS: NICOTINE 14 MG/24 HOURS TOPICAL PATCH TD SCH (10:58)
[2017-05-06] MEDS: amLODIPine BESYLATE 5 MG TABLET (FP) PO SCH (10:58)
--- NOTE | 2017-05-06 11:08 | PN ---
[facility] CIWA - CIWA Score Nausea/Vomitin-No Nausea/No Vomiting Muscle Tremors: 4-Moderate,w/Arms Extend Anxiety: 4-Mod. Anxious/Guarded Agitation: 4-Moderately Restless Paroxysmal Sweats: 1-Minimal Palms Moist Orientation: 0-Oriented Tacttile Disturbances: 3-Moderate Itch/Numb/Burn Auditory Disturbances: 0-None Visual Disturbances: 0-None Headache: 0-None Present CIWA-Ar Total Score: 16 BHS Progress Note (SOAP) Subjective: ANXIETY,SWEATS,SLIGHT TREMORS,FATIGUE Objective: 05/06/17 11:10 Vital Signs Temperature 97.8 F 05/06/17 05:53 Pulse Rate 71 05/06/17 05:53 Respiratory Rate 18 05/06/17 05:53 Blood Pressure 121/74 05/06/17 05:53 O2 Sat by Pulse Oximetry (%) Laboratory Last Values WBC 5.8 K/mm3 (4.0-10.0) D 05/06/17 07:00 RBC 5.34 M/mm3 (4.00-5.60) 05/06/17 07:00 Hgb 12.0 GM/dL (11.7-16.9) 05/06/17 07:00 Hct 39.3 % (35.4-49) 05/06/17 07:00 MCV 73.6 fl (80-96) L 05/06/17 07:00 MCH 22.5 pg (25.7-33.7) L 05/06/17 07:00 MCHC 30.6 g/dl (32.0-35.9) L 05/06/17 07:00 RDW 15.3 % (11.9-15.9) 05/06/17 07:00 Plt Count 223 K/MM3 (134-434) 05/06/17 07:00 MPV 9.4 fl (7.5-11.1) 05/06/17 07:00 Sodium 144 mmol/L (136-145) 05/06/17 07:00 Potassium 4.2 mmol/L (3.5-5.1) 05/06/17 07:00 Chloride 110 mmol/L (98-107) H 05/06/17 07:00 Carbon Dioxide 28 mmol/L (21-32) 05/06/17 07:00 Anion Gap 6 (8-16) L 05/06/17 07:00 BUN 21 mg/dL (7-18) H D 05/06/17 07:00 Creatinine 1.4 mg/dL (0.7-1.3) H 05/06/17 07:00 Creat Clearance w eGFR 52.62 (>60) 05/06/17 07:00 Random Glucose 74 mg/dL (74-106) D 05/06/17 07:00 Calcium 8.3 mg/dL (8.5-10.1) L 05/06/17 07:00 Total Bilirubin 0.7 mg/dL (0.2-1.0) D 05/06/17 07:00 AST 45 U/L (15-37) H D 05/06/17 07:00 ALT 42 U/L (12-78) D 05/06/17 07:00 Alkaline Phosphatase 115 U/L (45-117) D 05/06/17 07:00 Total Protein 7.1 g/dl (6.4-8.2) 05/06/17 07:00 Albumin 3.5 g/dl (3.4-5.0) 05/06/17 07:00 Assessment: 05/06/17 11:10 WITHDRAWAL SX Plan: CONTINUE DETOX
--- NOTE | 2017-05-06 18:30 | CONSULT ---
[facility] Psychiatric Consult - Data Date of interview: 05/06/17 Admission source: [facility] Identifying data: One of multiple admissions to [facility] for this 56 y/o AA male seeking detoxification treatment on for alcohol,xanax and cocaine dependence.Patient is ,childless,domiciled,currently unemployed and supported on food stamps / odd jobs. Substance Abuse History: Confirmed by patient in this session.Details in current [facility] report . Smoking history: Current every day smoker. Have you smoked in the past 12 months: Yes. Aproximately how many cigarettes per day: 10. Cigars Per Day: 0. Hx Chewing Tobacco Use: No. Initiated information on smoking cessation: Yes. 'Breaking Loose' booklet given: 05/05/17. - Substance & Tx. History. Hx Alcohol Use: Yes. Hx Substance Use: Yes (crack cocaine). Substance Use Type: Cocaine (crack cocaine - ). Hx Substance Use Treatment: Yes. - Substances Abused. Alcohol. Route: Oral. Frequency: Daily. Amount used: 2 -3 (6 packs of 18oz beers), Ocassional 2 - 3 pints of vodka daily. Age of first use: 19. Date of Last Use: 05/04/17 (was seen at [facility] for it). Crack. Route: Inhalation. Frequency: Daily. Amount used: 4 - 5 grams (10 bags). Age of first use: 19. Date of Last Use: 05/04/17. Alprazolam (Xanax). Route: Oral. Frequency: 3-6 times per week. Amount used: 2 tabs. Age of first use: 55. Date of Last Use: 04/27/17 Medical History: Anemia,hypertension,GERD and positive PPD (treated with INH as per self-report).Reports history of right knee injury 5 years ago. Psychiatric History: Patient denies. Physical/Sexual Abuse/Trauma History: No reported history of abuse. Additional Comment: Urine Drug Screen Results: EVETTE-Cocaine, BZO- Benzodiazepines.Noted. Mental Status Exam - Mental Status Exam Alert and Oriented to: Time, Place, Person Cognitive Function: Good Patient Appearance: Well Groomed Mood: Hopeful, Euthymic Affect: Appropriate, Normal Range Patient Behavior: Appropriate, Cooperative Speech Pattern: Clear, Appropriate Voice Loudness: Normal Thought Process: Intact, Goal Oriented Thought Disorder: Not Present Hallucinations: Denies Suicidal Ideation: Denies Homicidal Ideation: Denies Insight/Judgement: Poor Sleep: Poorly, Difficulty falling asleep Appetite: Good Muscle strength/Tone: Normal Gait/Station: Normal Psychiatric Findings - Problem List ([place] 1, 2,3) (1) Alcohol dependence with uncomplicated withdrawal Current Visit: Yes Status: Acute (2) Sedative, hypnotic or anxiolytic dependence with withdrawal, uncomplicated Current Visit: Yes Status: Acute (3) Cocaine dependence with withdrawal Current Visit: Yes Status: Acute (4) Nicotine dependence Current Visit: Yes Status: Acute Qualifiers: Nicotine product type: cigarettes Substance use status: in withdrawal Qualified Code(s): F17.213 - Nicotine dependence, cigarettes, with withdrawal (5) Insomnia Current Visit: Yes Status: Acute - Initial Treatment Plan Initial Treatment Plan: Records revisited.Psychoeducation and support provided in this session.Detoxification protocol in effect.Sleep hygiene discussed.Emphasis is placed on benefits of attendance to daily group therapy, recreational activities and community meetings.Patient agrees.Ambien 10 mg po hs prn.Patient is made aware of potential for parasomnias.Consented (verbally) to this careplan.Observation.
[2017-05-06] MEDS: THIAMINE HCL 100 MG TABLET (FP) PO SCH (22:08)
[2017-05-06] MEDS: ZOLPIDEM TARTRATE 10 MG TABLET (PARK CARE ONLY) PO PRN (22:08)
--- NOTE | 2017-05-06 23:33 | EKG ---
Test Reason : Blood Pressure : / mmHG Vent. Rate : 081 BPM Atrial Rate : 081 BPM P-R Int : 148 ms QRS Dur : 086 ms QT Int : 384 ms P-R-T Axes : 068 058 032 degrees QTc Int : 446 ms NORMAL SINUS RHYTHM NONSPECIFIC ST AND T WAVE ABNORMALITY ABNORMAL ECG WHEN COMPARED WITH ECG OF 19-MAR-2017 19:50, T WAVE VARIATION Confirmed by KAMI SR MD ([id number]) on 05/06/2017 11:33:02 PM Referred By: Confirmed By:KAMI SR MD
[2017-05-07] MEDS: chlordiazePOXIDE HCL 25 MG CAPSULE PO SCH ×3 (05:07→18:37)
[2017-05-07] MEDS: NICOTINE 14 MG/24 HOURS TOPICAL PATCH TD SCH (10:13)
[2017-05-07] MEDS: amLODIPine BESYLATE 5 MG TABLET (FP) PO SCH (10:13)
[2017-05-07] MEDS: PRENATAL VITAMINS W/ FOLIC ACID TABLET (FP) PO SCH (10:13)
--- NOTE | 2017-05-07 10:27 | PN ---
[facility] CIWA - CIWA Score Nausea/Vomitin-No Nausea/No Vomiting Muscle Tremors: 4-Moderate,w/Arms Extend Anxiety: 4-Mod. Anxious/Guarded Agitation: 4-Moderately Restless Paroxysmal Sweats: 1-Minimal Palms Moist Orientation: 0-Oriented Tacttile Disturbances: 3-Moderate Itch/Numb/Burn Auditory Disturbances: 0-None Visual Disturbances: 0-None Headache: 0-None Present CIWA-Ar Total Score: 16 S Progress Note (SOAP) Subjective: ANXIETY, SWEATS,SLIGHT TREMORS,FATIGUE. Objective: 05/07/17 10:26 Vital Signs Temperature 98.6 F 05/07/17 09:42 Pulse Rate 80 05/07/17 09:42 Respiratory Rate 20 05/07/17 09:42 Blood Pressure 145/94 05/07/17 09:42 O2 Sat by Pulse Oximetry (%) Laboratory Last Values WBC 5.8 K/mm3 (4.0-10.0) D 05/06/17 07:00 RBC 5.34 M/mm3 (4.00-5.60) 05/06/17 07:00 Hgb 12.0 GM/dL (11.7-16.9) 05/06/17 07:00 Hct 39.3 % (35.4-49) 05/06/17 07:00 MCV 73.6 fl (80-96) L 05/06/17 07:00 MCH 22.5 pg (25.7-33.7) L 05/06/17 07:00 MCHC 30.6 g/dl (32.0-35.9) L 05/06/17 07:00 RDW 15.3 % (11.9-15.9) 05/06/17 07:00 Plt Count 223 K/MM3 (134-434) 05/06/17 07:00 MPV 9.4 fl (7.5-11.1) 05/06/17 07:00 Sodium 144 mmol/L (136-145) 05/06/17 07:00 Potassium 4.2 mmol/L (3.5-5.1) 05/06/17 07:00 Chloride 110 mmol/L (98-107) H 05/06/17 07:00 Carbon Dioxide 28 mmol/L (21-32) 05/06/17 07:00 Anion Gap 6 (8-16) L 05/06/17 07:00 BUN 21 mg/dL (7-18) H D 05/06/17 07:00 Creatinine 1.4 mg/dL (0.7-1.3) H 05/06/17 07:00 Creat Clearance w eGFR 52.62 (>60) 05/06/17 07:00 Random Glucose 74 mg/dL (74-106) D 05/06/17 07:00 Calcium 8.3 mg/dL (8.5-10.1) L 05/06/17 07:00 Total Bilirubin 0.7 mg/dL (0.2-1.0) D 05/06/17 07:00 AST 45 U/L (15-37) H D 05/06/17 07:00 ALT 42 U/L (12-78) D 05/06/17 07:00 Alkaline Phosphatase 115 U/L (45-117) D 05/06/17 07:00 Total Protein 7.1 g/dl (6.4-8.2) 05/06/17 07:00 Albumin 3.5 g/dl (3.4-5.0) 05/06/17 07:00 RPR Titer Nonreactive (NONREACTIVE) 05/06/17 07:00 Assessment: 05/07/17 10:26 WITHDRAWAL SX Plan: CONTINUE DETOX
[2017-05-07 17:53] LABS: URINE APPEARANCE CLEAR; URINE BILIRUBIN NEGATIVE (NEGATIVE); URINE BLOOD NEGATIVE (NEGATIVE); URINE COLOR LTYELLOW; URINE GLUCOSE (UA) NEGATIVE (NEGATIVE); URINE KETONE NEGATIVE (NEGATIVE); URINE LEUK ESTERASE NEGATIVE (NEGATIVE); URINE NITRITE NEGATIVE (NEGATIVE); URINE PROTEIN NEGATIVE (NEGATIVE)
[2017-05-07] MEDS: THIAMINE HCL 100 MG TABLET (FP) PO SCH (22:06)
[2017-05-07] MEDS: ZOLPIDEM TARTRATE 10 MG TABLET (PARK CARE ONLY) PO PRN (22:06)
[2017-05-07] MEDS: chlordiazePOXIDE 5 MG CAPSULE PO SCH (22:06)
[2017-05-08] MEDS: chlordiazePOXIDE 5 MG CAPSULE PO SCH ×3 (06:08→17:46)
--- NOTE | 2017-05-08 10:06 | PN ---
[facility] Progress Note (SOAP) Subjective: DECREASED ANXIETY,SWEATS. SLIGHT FATIGUE. OOB WITH STEADY GAIT. Objective: 05/08/17 10:06 Vital Signs Temperature 97.1 F L 05/08/17 09:20 Pulse Rate 73 05/08/17 09:20 Respiratory Rate 18 05/08/17 09:20 Blood Pressure 141/101 05/08/17 09:20 O2 Sat by Pulse Oximetry (%) Laboratory Last Values WBC 5.8 K/mm3 (4.0-10.0) D 05/06/17 07:00 RBC 5.34 M/mm3 (4.00-5.60) 05/06/17 07:00 Hgb 12.0 GM/dL (11.7-16.9) 05/06/17 07:00 Hct 39.3 % (35.4-49) 05/06/17 07:00 MCV 73.6 fl (80-96) L 05/06/17 07:00 MCH 22.5 pg (25.7-33.7) L 05/06/17 07:00 MCHC 30.6 g/dl (32.0-35.9) L 05/06/17 07:00 RDW 15.3 % (11.9-15.9) 05/06/17 07:00 Plt Count 223 K/MM3 (134-434) 05/06/17 07:00 MPV 9.4 fl (7.5-11.1) 05/06/17 07:00 Sodium 144 mmol/L (136-145) 05/06/17 07:00 Potassium 4.2 mmol/L (3.5-5.1) 05/06/17 07:00 Chloride 110 mmol/L (98-107) H 05/06/17 07:00 Carbon Dioxide 28 mmol/L (21-32) 05/06/17 07:00 Anion Gap 6 (8-16) L 05/06/17 07:00 BUN 21 mg/dL (7-18) H D 05/06/17 07:00 Creatinine 1.4 mg/dL (0.7-1.3) H 05/06/17 07:00 Creat Clearance w eGFR 52.62 (>60) 05/06/17 07:00 Random Glucose 74 mg/dL (74-106) D 05/06/17 07:00 Calcium 8.3 mg/dL (8.5-10.1) L 05/06/17 07:00 Total Bilirubin 0.7 mg/dL (0.2-1.0) D 05/06/17 07:00 AST 45 U/L (15-37) H D 05/06/17 07:00 ALT 42 U/L (12-78) D 05/06/17 07:00 Alkaline Phosphatase 115 U/L (45-117) D 05/06/17 07:00 Total Protein 7.1 g/dl (6.4-8.2) 05/06/17 07:00 Albumin 3.5 g/dl (3.4-5.0) 05/06/17 07:00 Urine Color Ltyellow 05/07/17 15:00 Urine Appearance Clear 05/07/17 15:00 Urine pH 7.0 (5.0-8.0) 05/07/17 15:00 Ur Specific [place] 1.020 (1.001-1.035) 05/07/17 15:00 Urine Protein Negative (NEGATIVE) 05/07/17 15:00 Urine Glucose (UA) Negative (NEGATIVE) 05/07/17 15:00 Urine Ketones Negative (NEGATIVE) 05/07/17 15:00 Urine Blood Negative (NEGATIVE) 05/07/17 15:00 Urine Nitrite Negative (NEGATIVE) 05/07/17 15:00 Urine Bilirubin Negative (NEGATIVE) 05/07/17 15:00 Urine Urobilinogen 2.0 mg/dL (0.2-1.0) 05/07/17 15:00 Ur Leukocyte Esterase Negative (NEGATIVE) 05/07/17 15:00 RPR Titer Nonreactive (NONREACTIVE) 05/06/17 07:00 Assessment: 05/08/17 10:06 WITHDRAWAL SX Plan: CONTINUE DETOX
[2017-05-08] MEDS ORDERED: amLODIPine BESYLATE 5 MG TABLET (FP) PO SCH (10:08)
[2017-05-08] MEDS: PRENATAL VITAMINS W/ FOLIC ACID TABLET (FP) PO SCH (10:08)
[2017-05-08] MEDS: NICOTINE 14 MG/24 HOURS TOPICAL PATCH TD SCH (10:09)
[2017-05-08] MEDS: amLODIPine BESYLATE 5 MG TABLET (FP) PO SCH (10:09)
[2017-05-08] MEDS ORDERED: amLODIPine BESYLATE 5 MG TABLET (FP) PO ONE (11:03)
[2017-05-08 18:15] VITALS: BP 133/91; PULSE 82; TEMP 98.2
--- NOTE | 2017-05-08 19:56 | DS ---
[facility] Detox Discharge Summary Admission Date: 05/05/17 Discharge Date: 05/08/17 - History Present History: Alcohol Dependence, Cocaine Dependence Additional Comments: Patient to follow up with out patient groups and PCP. 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 Pertinent Past History: Anemia HTN - Physical Exam Results Vital Signs: Vital Signs Temperature 98.2 F 05/08/17 18:14 Pulse Rate 82 05/08/17 18:14 Respiratory Rate 18 05/08/17 18:14 Blood Pressure 133/91 05/08/17 18:14 O2 Sat by Pulse Oximetry (%) Pertinent Admission Physical Exam Findings: Last Vital Signs Temp Pulse Resp BP Pulse Ox 98.2 F 82 18 133/91 05/08/17 18:14 05/08/17 18:14 05/08/17 18:14 05/08/17 18:14 Laboratory Last Values WBC 5.8 K/mm3 (4.0-10.0) D 05/06/17 07:00 RBC 5.34 M/mm3 (4.00-5.60) 05/06/17 07:00 Hgb 12.0 GM/dL (11.7-16.9) 05/06/17 07:00 Hct 39.3 % (35.4-49) 05/06/17 07:00 MCV 73.6 fl (80-96) L 05/06/17 07:00 MCH 22.5 pg (25.7-33.7) L 05/06/17 07:00 MCHC 30.6 g/dl (32.0-35.9) L 05/06/17 07:00 RDW 15.3 % (11.9-15.9) 05/06/17 07:00 Plt Count 223 K/MM3 (134-434) 05/06/17 07:00 MPV 9.4 fl (7.5-11.1) 05/06/17 07:00 Sodium 144 mmol/L (136-145) 05/06/17 07:00 Potassium 4.2 mmol/L (3.5-5.1) 05/06/17 07:00 Chloride 110 mmol/L (98-107) H 05/06/17 07:00 Carbon Dioxide 28 mmol/L (21-32) 05/06/17 07:00 Anion Gap 6 (8-16) L 05/06/17 07:00 BUN 21 mg/dL (7-18) H D 05/06/17 07:00 Creatinine 1.4 mg/dL (0.7-1.3) H 05/06/17 07:00 Creat Clearance w eGFR 52.62 (>60) 05/06/17 07:00 Random Glucose 74 mg/dL (74-106) D 05/06/17 07:00 Calcium 8.3 mg/dL (8.5-10.1) L 05/06/17 07:00 Total Bilirubin 0.7 mg/dL (0.2-1.0) D 05/06/17 07:00 AST 45 U/L (15-37) H D 05/06/17 07:00 ALT 42 U/L (12-78) D 05/06/17 07:00 Alkaline Phosphatase 115 U/L (45-117) D 05/06/17 07:00 Total Protein 7.1 g/dl (6.4-8.2) 05/06/17 07:00 Albumin 3.5 g/dl (3.4-5.0) 05/06/17 07:00 Urine Color Ltyellow 05/07/17 15:00 Urine Appearance Clear 05/07/17 15:00 Urine pH 7.0 (5.0-8.0) 05/07/17 15:00 Ur Specific [place] 1.020 (1.001-1.035) 05/07/17 15:00 Urine Protein Negative (NEGATIVE) 05/07/17 15:00 Urine Glucose (UA) Negative (NEGATIVE) 05/07/17 15:00 Urine Ketones Negative (NEGATIVE) 05/07/17 15:00 Urine Blood Negative (NEGATIVE) 05/07/17 15:00 Urine Nitrite Negative (NEGATIVE) 05/07/17 15:00 Urine Bilirubin Negative (NEGATIVE) 05/07/17 15:00 Urine Urobilinogen 2.0 mg/dL (0.2-1.0) 05/07/17 15:00 Ur Leukocyte Esterase Negative (NEGATIVE) 05/07/17 15:00 RPR Titer Nonreactive (NONREACTIVE) 05/06/17 07:00 - Medication Discharge Medications: Ambulatory Orders Amlodipine Besylate [Norvasc -] 5 mg PO DAILY #30 tablet 05/07/17 - Diagnosis (1) Alcohol dependence with uncomplicated withdrawal Current Visit: Yes Status: Acute (2) Cocaine dependence with withdrawal Current Visit: Yes Status: Acute (3) Nicotine dependence Current Visit: Yes Status: Acute Qualifiers: Nicotine product type: cigarettes Substance use status: in withdrawal Qualified Code(s): F17.213 - Nicotine dependence, cigarettes, with withdrawal (4) Essential hypertension Current Visit: Yes Status: Chronic (5) History of anemia Current Visit: Yes Status: Suspected - AMA Did Patient Leave Against Medical Advice: Yes
[2017-05-08] MEDS ORDERED: chlordiazePOXIDE HCL 10 MG CAPSULE PO SCH (23:00)
[2017-05-09] MEDS ORDERED: amLODIPine BESYLATE 10 MG TABLET (FP) PO SCH (10:00)
== END 2017-05-08 20:35 | disposition home or self-care (01) | DRG 774 ==
LOC: YASAS 07:00 → Y3N 08:00
PROVIDERS: ADMIT Internal Medicine; ATTEND Internal Medicine
PROC: HZ2ZZZZ Detoxification Services for Substance Abuse Treatment (ICD-10-PCS; principal; 2017-05-05)
DX: F13.230 Sedative, hypnotic or anxiolytic dependence with withdrawal, uncomplicated (principal); F10.230 Alcohol dependence with withdrawal, uncomplicated; F14.23 Cocaine dependence with withdrawal; F17.213 Nicotine dependence, cigarettes, with withdrawal; I10 Essential (primary) hypertension; G47.00 Insomnia, unspecified; Z86.2 Personal history of diseases of the blood and blood-forming organs and certain disorders involving the immune mechanism
CPT/HCPCS: 36415; 71046-TC-FY; 80053; 81003; 85027; 86593; 93005; 93010

== ENCOUNTER 2017-07-06 08:57 | Inpatient (IN) | payer OTHER ==
[2017-07-06 09:25] VITALS: BMI 29.8
--- NOTE | 2017-07-06 10:03 | HP ---
CIWA Score - CIWA Score Nausea/Vomitin Muscle Tremors: 3 Anxiety: 4-Mod. Anxious/Guarded Agitation: 0-Normal Activity Paroxysmal Sweats: 1-Minimal Palms Moist Orientation: 0-Oriented Tacttile Disturbances: 1-Very Mild Itch/Numbness Auditory Disturbances: 1-Very Mild Visual Disturbances: 1-Very Mild Sensitivity Headache: 1-Very Mild CIWA-Ar Total Score: 14 Admission ROS BHS - HPI Chief Complaint: I want to clean myself out, detox, get off the drugs Allergies/Adverse Reactions: Allergies Allergy/AdvReac Type Severity Reaction Status Date / Time No Known Allergies Allergy Verified 07/06/17 09:50 History of Present Illness: 56 yo gentleman here for detox from alcohol, also using cocaine. This is one of multiple admissions for detox. No seizures but does have black outs. Exam Limitations: Clinical Condition - Ebola screening Have you traveled outside of the country in the last 21 days: No (N) Have you had contact with anyone from an Ebola affected area: No Have you been sick,other than usual withdrawal symptoms: No Do you have a fever: No - Review of Systems Constitutional: Malaise, Changes in sleep, Weakness EENT: reports: Blurred Vision Respiratory: reports: No Symptoms reported Cardiac: reports: No Symptoms Reported GI: reports: Nausea, Poor Appetite, Poor Fluid Intake : reports: Frequency Musculoskeletal: reports: No Symptoms Reported Integumentary: reports: Dryness Neuro: reports: Headache Endocrine: reports: No Symptoms Reported Hematology: reports: No Symptoms Reported Psychiatric: reports: Judgement Intact, Mood/Affect Appropiate, Orientated x3, Anxious Other Systems: Reviewed and Negative Patient History - Patient Medical History Hx Anemia: No Hx Asthma: No Hx Chronic Obstructive Pulmonary Disease (COPD): No Hx Cancer: No Hx Cardiac Disorders: No Hx Hypertension: Yes (on meds) Hx Hypercholesterolemia: No Hx Pacemaker: No HX Cerebrovascular Accident: No Hx Seizures: No Hx Dementia: No Hx Diabetes: No Hx Gastrointestinal Disorders: Yes (ACID REFLUX) Hx Liver Disease: No Hx Genitourinary Disorders: No Hx Sexually Transmitted Disorders: No Hx Renal Disease (ESRD): No Hx Thyroid Disease: No Hx Human Immunodeficiency Virus (HIV): No Hx Hepatitis C: No Hx Depression: No Hx Suicide Attempt: No Hx Bipolar Disorder: No Hx Schizophrenia: No - Patient Surgical History Past Surgical History: No Hx Neurologic Surgery: No Hx Cataract Extraction: No Hx Cardiac Surgery: No Hx Lung Surgery: No Hx Breast Surgery: No Hx Breast Biopsy: No Hx Abdominal Surgery: No Hx Appendectomy: No Hx Cholecystectomy: No Hx Genitourinary Surgery: No Hx Section: No Hx Orthopedic Surgery: No Anesthesia Reaction: No - PPD History Previous Implant?: Yes Documented Results: Positive w/proof Date: 05/06/17 (cxr done) PPD to be Administered?: No - Reproductive History Patient is a Female of Child Bearing Age (11 -55 yrs old): No (male) Patient : No - Smoking Cessation Smoking history: Current every day smoker Have you smoked in the past 12 months: Yes Aproximately how many cigarettes per day: 10 Cigars Per Day: 0 Hx Chewing Tobacco Use: No Initiated information on smoking cessation: Yes 'Breaking Loose' booklet given: 07/06/17 (give on floor) - Substance & Tx. History Hx Alcohol Use: Yes Hx Substance Use: Yes Substance Use Type: Alcohol, Cocaine Hx Substance Use Treatment: Yes (detox, rehab) - Substances Abused Cocaine Route: Smoking Frequency: Daily Amount used: $200 Age of first use: 19 Date of Last Use: 07/05/17 etoh Route: Oral Frequency: Daily Amount used: 2 Pint vodka, 2-6pk (16oz) bEER Age of first use: 19 Date of Last Use: 07/05/17 Family Disease History - Family Disease History Family Disease History: Other: Father (HTN - , etoh), Mother (HTN- (stomach Ca), etoh), Brother (HTN, living, sober), Sister (HTN, living) Admission Physical Exam [facility] - Vital Signs Vital Signs: Vital Signs - 24 hr 07/06/17 09:23 Temperature 96.7 F L Pulse Rate 82 Respiratory 18 Rate Blood Pressure 145/81 - Physical General Appearance: Yes: Nourished, Appropriately Dressed, Mild Distress, Anxious HEENTM: Yes: EOMI, Hearing grossly Normal, Normocephalic, Normal Voice, Pharynx Normal, Other (tongue coated) Respiratory: Yes: Normal Breath Sounds, No Respiratory Distress Neck: Yes: No masses,lesions,Nodules Breast: Yes: Breast Exam Deferred Cardiology: Yes: Regular Rhythm, Regular Rate Abdominal: Yes: Flat, Soft Genitourinary: Yes: Frequency Back: Yes: Normal Inspection Musculoskeletal: Yes: full range of Motion, Gait Steady Extremities: Yes: Normal Inspection, Non-Tender Neurological: Yes: Fully Oriented, Alert, Motor Strength 5/5, Normal Mood/Affect , Normal Response Integumentary: Yes: Normal Color, Dry, Warm Lymphatic: Yes: Within Normal Limits - Diagnostic (1) Alcohol dependence with uncomplicated withdrawal Current Visit: Yes Status: Chronic (2) Cocaine dependence with withdrawal Current Visit: Yes Status: Chronic (3) PPD positive, treated Current Visit: Yes Status: Chronic (4) Essential hypertension Current Visit: Yes Status: Chronic (5) Nicotine dependence Current Visit: Yes Status: Chronic Qualifiers: Nicotine product type: cigarettes Substance use status: uncomplicated Qualified Code(s): F17.210 - Nicotine dependence, cigarettes, uncomplicated (6) GERD (gastroesophageal reflux disease) Current Visit: Yes Status: Chronic Qualifiers: Esophagitis presence: without esophagitis Qualified Code(s): K21.9 - Gastro -esophageal reflux disease without esophagitis (7) Dehydration Current Visit: Yes Status: Chronic Cleared for Admission [facility] - Detox or Rehab [facility] Level of Care: Medically Managed Detox Regimen/Protocol: Librium [facility] Breath Alcohol Content Breath Alcohol Content: 0 Urine Drug Screen - Results Drug Screen Negative: No Urine Drug Screen Results: EVETTE-Cocaine
[2017-07-06] MEDS ORDERED: ACETAMINOPHEN 325 MG TABLET (FP) PO PRN (13:13)
[2017-07-06] MEDS ORDERED: MAGNESIUM CITRATE 300 ML BOTTLE PO PRN (13:13)
[2017-07-06] MEDS ORDERED: MENTHOL/PHENOL 1 EACH UD MM PRN (13:13)
[2017-07-06] MEDS ORDERED: LOPERAMIDE HCL 2 MG CAPSULE PO PRN (13:13)
[2017-07-06] MEDS ORDERED: IBUPROFEN 400 MG TABLET (FP) PO PRN (13:13)
[2017-07-06] MEDS ORDERED: MAGNESIUM HYDROX 2400MG/30ML ORAL SUSPENSION 30 ML CUP PO PRN (13:13)
[2017-07-06] MEDS ORDERED: MAG HYDROX/AL HYDROX/SIMETH 30 ML UNIT-DOSE CUP PO PRN (13:13)
[2017-07-06] MEDS ORDERED: guaiFENesin/D-METHORPHAN HB 10 ML UNIT-DOSE CUPS PO PRN (13:13)
[2017-07-06] MEDS ORDERED: chlordiazePOXIDE HCL 25 MG CAPSULE PO PRN (13:13)
[2017-07-06] MEDS ORDERED: hydrOXYzine PAMOATE 25 MG CAPSULE (FP) PO PRN (13:13)
[2017-07-06] MEDS ORDERED: P-EPHED 60MG/TRIPROLIDI 2.5MG TABLET PO PRN (13:13)
[2017-07-06] MEDS: amLODIPine BESYLATE 10 MG TABLET (FP) PO SCH (13:44)
[2017-07-06] MEDS ORDERED: chlordiazePOXIDE HCL 25 MG CAPSULE PO ONE (13:45)
[2017-07-06 16:56] LABS: URINE APPEARANCE CLEAR; URINE BILIRUBIN NEGATIVE (<2.0 mg/dL); URINE BLOOD NEGATIVE (NEGATIVE); URINE COLOR YELLOW; URINE GLUCOSE (UA) NEGATIVE (NEGATIVE); URINE KETONE TRACE (NEGATIVE); URINE LEUK ESTERASE NEGATIVE (NEGATIVE); URINE NITRITE NEGATIVE (NEGATIVE); URINE PROTEIN NEGATIVE (NEGATIVE); URINE UROBILINOGEN NEGATIVE mg/dL (0.2-1.0)
[2017-07-06] MEDS: chlordiazePOXIDE HCL 25 MG CAPSULE PO SCH ×2 (17:21→22:54)
[2017-07-06] MEDS ORDERED: THIAMINE HCL 100 MG TABLET (FP) PO SCH (22:00)
[2017-07-06] MEDS ORDERED: MELATONIN 5 MG TABLETS PO PRN (22:00)
[2017-07-07] MEDS: VITAMINS A AND D TOPICAL OINTMENT 60 GM TUBE TP SCH ×3 (00:45→12:00)
[2017-07-07] MEDS: chlordiazePOXIDE HCL 25 MG CAPSULE PO SCH ×2 (05:36→10:47)
--- NOTE | 2017-07-07 06:51 | CONSULT ---
[facility] Psychiatric Consult - Data Date of interview: 07/07/17 Admission source: Self-referred Identifying data: Mr Jerez is a 56 years old Black male, unemployed with no source of income, homeless seeking detox treatment for alcohol and cocaine Substance Abuse History: Reports history of alcohol and cocaine use. Refer to addiction counselor's note for further information Medical History: Significant for hypertension, GERD, injury right knee and a history of treatment for anemia and PPD+. Smokes 10 cigarettes daily Psychiatric History: Denies history of previous psychiatric treatment Physical/Sexual Abuse/Trauma History: Denies history of verbal, physical or sexual abuse as well as DV relationship. Additional Comment: Reports history of 3-4 previous misdemeanor arrests. Mental Status Exam - Mental Status Exam Alert and Oriented to: Time, Place, Person Cognitive Function: Fair Patient Appearance: Well Groomed Mood: Hopeful, Euthymic Patient Behavior: Cooperative Speech Pattern: Clear Voice Loudness: Normal Thought Process: Intact, Goal Oriented Thought Disorder: Not Present Hallucinations: Denies Suicidal Ideation: Denies Homicidal Ideation: Denies Insight/Judgement: Poor Sleep: Well Appetite: Good Muscle strength/Tone: Normal Gait/Station: Normal Psychiatric Findings - Problem List ([place] 1, 2,3) (1) Alcohol dependence with uncomplicated withdrawal Current Visit: Yes Status: Acute (2) Cocaine dependence with withdrawal Current Visit: Yes Status: Acute (3) Nicotine dependence Current Visit: Yes Status: Chronic Qualifiers: Nicotine product type: cigarettes Substance use status: uncomplicated Qualified Code(s): F17.210 - Nicotine dependence, cigarettes, uncomplicated (4) Essential hypertension Current Visit: Yes Status: Chronic (5) GERD (gastroesophageal reflux disease) Current Visit: Yes Status: Chronic Qualifiers: Esophagitis presence: without esophagitis Qualified Code(s): K21.9 - Gastro -esophageal reflux disease without esophagitis (6) PPD positive, treated Current Visit: Yes Status: Chronic (7) Right knee pain Current Visit: No Status: Chronic (8) History of anemia Current Visit: No Status: Suspected - Initial Treatment Plan Initial Treatment Plan: Continue inpatient detoxification
[2017-07-07] MEDS ORDERED: PRENATAL VITAMINS W/ FOLIC ACID TABLET (FP) PO SCH (10:00)
[2017-07-07 10:33] LABS: HEMATOCRIT 37.9 % (35.4-49); HEMOGLOBIN 12.1 GM/dL (11.7-16.9); MCH 23.4 pg (25.7-33.7); MCHC 31.8 g/dl (32.0-35.9); MEAN CELL VOLUME 73.4 fl (80-96); MEAN PLT VOLUME 9.6 fl (7.5-11.1); PLATELET COUNT 185 K/MM3 (134-434); RBC 5.16 M/mm3 (4.00-5.60); RDW 15.3 % (11.9-15.9); WHITE BLOOD COUNT 5.1 K/mm3 (4.0-10.0)
[2017-07-07 10:47] LABS: ALBUMIN 3.2 g/dl (3.4-5.0); ANION GAP 4 (8-16); BLOOD UREA NITROGEN 25 mg/dL (7-18); CALCIUM 8.1 mg/dL (8.5-10.1); CHLORIDE 108 mmol/L (98-107); CO2 29 mmol/L (21-32); GLUCOSE,RANDOM 91 mg/dL (74-106); SODIUM 141 mmol/L (136-145)
[2017-07-07] MEDS: amLODIPine BESYLATE 10 MG TABLET (FP) PO SCH (10:47)
[2017-07-07 10:51] LABS: ALK PHOS 90 U/L (45-117); BILIRUBIN,TOTAL 0.5 mg/dL (0.2-1.0); CREATININE 1.5 mg/dL (0.7-1.3); SGOT/AST 46 U/L (15-37); SGPT/ALT 32 U/L (12-78); TOT PROT 6.8 g/dl (6.4-8.2)
--- NOTE | 2017-07-07 13:35 | PN ---
[facility] CIWA - CIWA Score Nausea/Vomitin-Mild Nausea/No Vomiting Muscle Tremors: 4-Moderate,w/Arms Extend Anxiety: 3 Agitation: 3 Paroxysmal Sweats: 1-Minimal Palms Moist Orientation: 0-Oriented Tacttile Disturbances: 1-Very Mild Itch/Numbness Auditory Disturbances: 0-None Visual Disturbances: 0-None Headache: 0-None Present CIWA-Ar Total Score: 13 BHS Progress Note (SOAP) Subjective: sweat tremor restlessness anxiety mild gi distress Objective: 07/07/17 13:34 Vital Signs Temperature 97.5 F L 07/07/17 12:06 Pulse Rate 72 07/07/17 12:06 Respiratory Rate 18 07/07/17 12:06 Blood Pressure 118/80 07/07/17 12:06 O2 Sat by Pulse Oximetry (%) Laboratory Last Values WBC 5.1 K/mm3 (4.0-10.0) 07/07/17 07:30 RBC 5.16 M/mm3 (4.00-5.60) 07/07/17 07:30 Hgb 12.1 GM/dL (11.7-16.9) 07/07/17 07:30 Hct 37.9 % (35.4-49) 07/07/17 07:30 MCV 73.4 fl (80-96) L 07/07/17 07:30 MCH 23.4 pg (25.7-33.7) L 07/07/17 07:30 MCHC 31.8 g/dl (32.0-35.9) L 07/07/17 07:30 RDW 15.3 % (11.9-15.9) 07/07/17 07:30 Plt Count 185 K/MM3 (134-434) 07/07/17 07:30 MPV 9.6 fl (7.5-11.1) 07/07/17 07:30 Sodium 141 mmol/L (136-145) 07/07/17 07:30 Potassium 4.0 mmol/L (3.5-5.1) 07/07/17 07:30 Chloride 108 mmol/L (98-107) H 07/07/17 07:30 Carbon Dioxide 29 mmol/L (21-32) 07/07/17 07:30 Anion Gap 4 (8-16) L 07/07/17 07:30 BUN 25 mg/dL (7-18) H 07/07/17 07:30 Creatinine 1.5 mg/dL (0.7-1.3) H 07/07/17 07:30 Creat Clearance w eGFR 48.59 (>60) 07/07/17 07:30 Random Glucose 91 mg/dL (74-106) D 07/07/17 07:30 Calcium 8.1 mg/dL (8.5-10.1) L 07/07/17 07:30 Total Bilirubin 0.5 mg/dL (0.2-1.0) D 07/07/17 07:30 AST 46 U/L (15-37) H 07/07/17 07:30 ALT 32 U/L (12-78) D 07/07/17 07:30 Alkaline Phosphatase 90 U/L (45-117) D 07/07/17 07:30 Total Protein 6.8 g/dl (6.4-8.2) 07/07/17 07:30 Albumin 3.2 g/dl (3.4-5.0) L 07/07/17 07:30 Urine Color Yellow 07/06/17 14:30 Urine Appearance Clear 07/06/17 14:30 Urine pH 5.0 (5.0-8.0) D 07/06/17 14:30 Ur Specific [place] 1.025 (1.001-1.035) 07/06/17 14:30 Urine Protein Negative (NEGATIVE) 07/06/17 14:30 Urine Glucose (UA) Negative (NEGATIVE) 07/06/17 14:30 Urine Ketones Trace (NEGATIVE) H 07/06/17 14:30 Urine Blood Negative (NEGATIVE) 07/06/17 14:30 Urine Nitrite Negative (NEGATIVE) 07/06/17 14:30 Urine Bilirubin Negative (<2.0 mg/dL) 07/06/17 14:30 Urine Urobilinogen Negative mg/dL (0.2-1.0) 07/06/17 14:30 Ur Leukocyte Esterase Negative (NEGATIVE) 07/06/17 14:30 RPR Titer Nonreactive (NONREACTIVE) 07/07/17 07:30 lab noted Assessment: 07/07/17 13:34 withdrawal sx Plan: continue detox
[2017-07-07 15:01] VITALS: BP 123/81; PULSE 76; TEMP 97.7
--- NOTE | 2017-07-07 15:22 | DS ---
[facility] Detox Discharge Summary Admission Date: 07/06/17 Discharge Date: 07/07/17 - History Present History: Alcohol Dependence Additional Comments: 56 years old male admitted for alcohol detox patient insists to terminate alcohol detox patient wants to leave the facility and heading to now [place] patient is alert oriented x 3 cohesive no acute distress CN II-XII grossly intact denies suicidal denies homoidal no self destructive behavior health teaching on addiction and hypertension - Physical Exam Results Vital Signs: Vital Signs Temperature 97.7 F 07/07/17 15:01 Pulse Rate 76 07/07/17 15:01 Respiratory Rate 18 07/07/17 15:01 Blood Pressure 123/81 07/07/17 15:01 O2 Sat by Pulse Oximetry (%) Pertinent Admission Physical Exam Findings: withdrawal sx Vital Signs Temperature 97.7 F 07/07/17 15:01 Pulse Rate 76 07/07/17 15:01 Respiratory Rate 18 07/07/17 15:01 Blood Pressure 123/81 07/07/17 15:01 O2 Sat by Pulse Oximetry (%) Laboratory Last Values WBC 5.1 K/mm3 (4.0-10.0) 07/07/17 07:30 RBC 5.16 M/mm3 (4.00-5.60) 07/07/17 07:30 Hgb 12.1 GM/dL (11.7-16.9) 07/07/17 07:30 Hct 37.9 % (35.4-49) 07/07/17 07:30 MCV 73.4 fl (80-96) L 07/07/17 07:30 MCH 23.4 pg (25.7-33.7) L 07/07/17 07:30 MCHC 31.8 g/dl (32.0-35.9) L 07/07/17 07:30 RDW 15.3 % (11.9-15.9) 07/07/17 07:30 Plt Count 185 K/MM3 (134-434) 07/07/17 07:30 MPV 9.6 fl (7.5-11.1) 07/07/17 07:30 Sodium 141 mmol/L (136-145) 07/07/17 07:30 Potassium 4.0 mmol/L (3.5-5.1) 07/07/17 07:30 Chloride 108 mmol/L (98-107) H 07/07/17 07:30 Carbon Dioxide 29 mmol/L (21-32) 07/07/17 07:30 Anion Gap 4 (8-16) L 07/07/17 07:30 BUN 25 mg/dL (7-18) H 07/07/17 07:30 Creatinine 1.5 mg/dL (0.7-1.3) H 07/07/17 07:30 Creat Clearance w eGFR 48.59 (>60) 07/07/17 07:30 Random Glucose 91 mg/dL (74-106) D 07/07/17 07:30 Calcium 8.1 mg/dL (8.5-10.1) L 07/07/17 07:30 Total Bilirubin 0.5 mg/dL (0.2-1.0) D 07/07/17 07:30 AST 46 U/L (15-37) H 07/07/17 07:30 ALT 32 U/L (12-78) D 07/07/17 07:30 Alkaline Phosphatase 90 U/L (45-117) D 07/07/17 07:30 Total Protein 6.8 g/dl (6.4-8.2) 07/07/17 07:30 Albumin 3.2 g/dl (3.4-5.0) L 07/07/17 07:30 Urine Color Yellow 07/06/17 14:30 Urine Appearance Clear 07/06/17 14:30 Urine pH 5.0 (5.0-8.0) D 07/06/17 14:30 Ur Specific [place] 1.025 (1.001-1.035) 07/06/17 14:30 Urine Protein Negative (NEGATIVE) 07/06/17 14:30 Urine Glucose (UA) Negative (NEGATIVE) 07/06/17 14:30 Urine Ketones Trace (NEGATIVE) H 07/06/17 14:30 Urine Blood Negative (NEGATIVE) 07/06/17 14:30 Urine Nitrite Negative (NEGATIVE) 07/06/17 14:30 Urine Bilirubin Negative (<2.0 mg/dL) 07/06/17 14:30 Urine Urobilinogen Negative mg/dL (0.2-1.0) 07/06/17 14:30 Ur Leukocyte Esterase Negative (NEGATIVE) 07/06/17 14:30 RPR Titer Nonreactive (NONREACTIVE) 07/07/17 07:30 lab noted - Treatment Hospital Course: Detox Protocol Followed, Detoxed Safely, Responded well, Discharged Condition Good, Rehab Referral Accepted Patient has Accepted a Rehab Referral to: as per arranged by the counselor - Medication Discharge Medications: Ambulatory Orders Clonidine HCl 0.2 mg PO DAILY 07/06/17 Amlodipine Besylate [Norvasc -] 10 mg PO DAILY #30 tablet 07/07/17 - Diagnosis (1) Alcohol dependence with uncomplicated withdrawal Current Visit: Yes Status: Acute (2) Essential hypertension Current Visit: Yes Status: Chronic (3) GERD (gastroesophageal reflux disease) Current Visit: Yes Status: Chronic Qualifiers: Esophagitis presence: without esophagitis Qualified Code(s): K21.9 - Gastro -esophageal reflux disease without esophagitis (4) Nicotine dependence Current Visit: Yes Status: Acute Qualifiers: Nicotine product type: cigarettes Substance use status: in withdrawal Qualified Code(s): F17.213 - Nicotine dependence, cigarettes, with withdrawal (5) PPD positive, treated Current Visit: Yes Status: Resolved - AMA Did Patient Leave Against Medical Advice: Yes
[2017-07-07] MEDS ORDERED: chlordiazePOXIDE HCL 25 MG CAPSULE PO SCH (17:00)
--- NOTE | 2017-07-08 12:41 | EKG ---
Test Reason : Blood Pressure : / mmHG Vent. Rate : 076 BPM Atrial Rate : 076 BPM P-R Int : 164 ms QRS Dur : 082 ms QT Int : 390 ms P-R-T Axes : 057 046 025 degrees QTc Int : 438 ms NORMAL SINUS RHYTHM NONSPECIFIC T WAVE ABNORMALITY ABNORMAL ECG WHEN COMPARED WITH ECG OF 05-MAY-2017 19:09, NO SIGNIFICANT CHANGE WAS FOUND Confirmed by RAFIA BROWN MD ([id number]) on 07/08/2017 12:41:23 PM Referred By: Confirmed By:RAFIA BROWN MD
[2017-07-08] MEDS ORDERED: chlordiazePOXIDE 5 MG CAPSULE PO SCH (17:00)
[2017-07-09] MEDS ORDERED: chlordiazePOXIDE HCL 10 MG CAPSULE PO SCH (17:00)
== END 2017-07-07 15:43 | disposition left against medical advice (07) | DRG 770 ==
LOC: YASAS 08:57 → Y6N 12:00
PROVIDERS: ADMIT Internal Medicine; ATTEND Internal Medicine
PROC: HZ2ZZZZ Detoxification Services for Substance Abuse Treatment (ICD-10-PCS; principal; 2017-07-06)
DX: F10.230 Alcohol dependence with withdrawal, uncomplicated (principal); F14.23 Cocaine dependence with withdrawal; F17.210 Nicotine dependence, cigarettes, uncomplicated; I10 Essential (primary) hypertension; K21.9 Gastro-esophageal reflux disease without esophagitis; M25.561 Pain in right knee; R76.11 Nonspecific reaction to tuberculin skin test without active tuberculosis; Z86.2 Personal history of diseases of the blood and blood-forming organs and certain disorders involving the immune mechanism
CPT/HCPCS: 36415; 80053; 81003; 85027; 86593; 93005; 93010

== ENCOUNTER 2018-03-14 10:54 | Inpatient (IN) | payer OTHER ==
[2018-03-14 11:55] VITALS: BMI 28.7
--- NOTE | 2018-03-14 12:51 | HP ---
CIWA Score Nausea/Vomitin-No Nausea/No Vomiting Muscle Tremors: None Anxiety: 2 Agitation: 0-Normal Activity Paroxysmal Sweats: No Perspiration Orientation: 0-Oriented Tacttile Disturbances: 0-None Auditory Disturbances: 0-None Visual Disturbances: 2-Mild Sensitivity Headache: 0-None Present CIWA-Ar Total Score: 4 - Admission Criteria OASAS Guidelines: Admission for Medically Managed Detox: Requires at least one of the followin. CIWA greater than 12 2. Seizures within the past 24 hours 3. Delirium tremens within the past 24 hours 4. Hallucinations within the past 24 hours 5. Acute intervention needed for co occurring medical disorder 6. Acute intervention needed for co occurring psychiatric disorder 7. Severe withdrawal that cannot be handled at a lower level of care (continued vomiting, continued diarrhea, abnormal vital signs) requiring intravenous medication and/or fluids 8. Admission ROS BHS - HPI Allergies/Adverse Reactions: Allergies Allergy/AdvReac Type Severity Reaction Status Date / Time tomato AdvReac Verified 03/14/18 12:48 History of Present Illness: patient reports 2 x 6-pk and 3 pints of liquor daily x 18 years, reports irritability if not drinking , denies seizures, blackouts or falls while intoxicated, + driving , starts drinking around 12 noon until 10 pm. Latest use today - had a beer 2 hours ago.Current symptoms as above. PMHX : htn , knee pain - chronic PSHx : denies PSych : denies meds : Norvasc tobacco - 3 cigarettes/ day utox + jet , bzo was in detox recently 2 weeks ago at [facility], completed treatment . - Ebola screening Have you traveled outside of the country in the last 21 days: No (N) Have you had contact with anyone from an Ebola affected area: No Have you been sick,other than usual withdrawal symptoms: No Do you have a fever: No - Review of Systems Constitutional: See HPI EENT: reports: Other (glasses) Respiratory: reports: No Symptoms reported Cardiac: reports: No Symptoms Reported GI: reports: No Symptoms Reported Musculoskeletal: reports: Joint Pain (right knee pain) Integumentary: reports: No Symptoms Reported Neuro: reports: No Symptoms reported Endocrine: reports: No Symptoms Reported Psychiatric: reports: Orientated x3 Patient History - Patient Medical History Hx Anemia: No Hx Asthma: No Hx Chronic Obstructive Pulmonary Disease (COPD): No Hx Cancer: No Hx Cardiac Disorders: No Hx Hypertension: No Hx Hypercholesterolemia: No Hx Pacemaker: No HX Cerebrovascular Accident: No Hx Seizures: No Hx Dementia: No Hx Diabetes: No Hx Gastrointestinal Disorders: No Hx Liver Disease: No Hx Genitourinary Disorders: No Hx Sexually Transmitted Disorders: No Hx Renal Disease (ESRD): No Hx Thyroid Disease: No Hx Human Immunodeficiency Virus (HIV): No Hx Hepatitis C: No Hx Depression: Yes Hx Suicide Attempt: No Hx Bipolar Disorder: No Hx Schizophrenia: No - Patient Surgical History Past Surgical History: No Hx Neurologic Surgery: No Hx Cataract Extraction: No Hx Cardiac Surgery: No Hx Lung Surgery: No Hx Breast Surgery: No Hx Breast Biopsy: No Hx Abdominal Surgery: No Hx Appendectomy: No Hx Cholecystectomy: No Hx Genitourinary Surgery: No Hx Section: No Hx Orthopedic Surgery: No Anesthesia Reaction: No - PPD History Previous Implant?: No Documented Results: Positive w/o proof Implanted On Prior [facility] Admission?: Yes Date: 05/06/17 Results: positive - Smoking Cessation Smoking history: Current every day smoker Have you smoked in the past 12 months: Yes Aproximately how many cigarettes per day: 10 Cigars Per Day: 0 Hx Chewing Tobacco Use: No Initiated information on smoking cessation: No - Substances Abused Alcohol Route: Oral Frequency: Daily Amount used: 2 six packs of beer,liquor 2or 3 pints Age of first use: 18 Date of Last Use: 03/14/18 Cocaine Route: Smoking Frequency: 3-6 times per week Amount used: $100 Age of first use: 19 Date of Last Use: 03/14/18 Family Disease History - Family Disease History Family Disease History: Other: Father (HTN - , etoh), Mother (HTN- (stomach Ca), etoh), Brother (HTN, living, sober), Sister (HTN, living) Admission Physical Exam BHS - Vital Signs Vital Signs: Vital Signs - 24 hr 03/14/18 11:45 Temperature 97.7 F Pulse Rate 78 Respiratory 20 Rate Blood Pressure 141/92 - Physical General Appearance: Yes: No Apparent Distress HEENTM: Yes: EOMI, Hearing grossly Normal, Normocephalic, Normal Voice, Pharynx Normal Respiratory: Yes: Chest Non-Tender, Lungs Clear, Normal Breath Sounds Neck: Yes: No masses,lesions,Nodules, Trachea in good position Breast: Yes: Breast Exam Deferred Cardiology: Yes: Regular Rhythm, Regular Rate, S1, S2 Abdominal: Yes: Normal Bowel Sounds, Non Tender, Flat, Soft Genitourinary: Yes: Within Normal Limits Back: Yes: Within Normal Limits Musculoskeletal: Yes: full range of Motion, Gait Steady Extremities: Yes: Normal Capillary Refill, Normal Range of Motion Neurological: Yes: Motor Strength 5/5 Integumentary: Yes: Normal Color, Dry, Warm - Diagnostic (1) Alcohol dependence Current Visit: Yes Status: Chronic Qualifiers: Substance use status: uncomplicated Qualified Code(s): F10.20 - Alcohol dependence, uncomplicated (2) Cocaine dependence with withdrawal Current Visit: Yes Status: Chronic (3) Nicotine dependence Current Visit: No Status: Chronic Qualifiers: Nicotine product type: cigarettes Substance use status: in withdrawal Qualified Code(s): F17.213 - Nicotine dependence, cigarettes, with withdrawal BHS Breath Alcohol Content Breath Alcohol Content: 0 Urine Drug Screen - Results Drug Screen Negative: No Urine Drug Screen Results: JET-Cocaine, BZO-Benzodiazepines Inpatient Rehab Admission - Initial Determination Are CD services needed?: Yes Free of communicable disease: Yes Not in need of hospitalization: Yes - Rehab Admission Criteria Previous failed treatment: Yes Poor recovery environment: Yes Comorbidities: No Lacks judgement: Yes Patient is meeting Inpatient Rehab admission criteria:: Yes
[2018-03-14] MEDS ORDERED: MENTHOL/PHENOL 1 EACH UD MM PRN (13:23)
[2018-03-14] MEDS ORDERED: ACETAMINOPHEN 325 MG TABLET (FP) PO PRN (13:23)
[2018-03-14] MEDS ORDERED: MAG HYDROX/AL HYDROX/SIMETH 30 ML UNIT-DOSE CUP PO PRN (13:23)
[2018-03-14] MEDS ORDERED: MAGNESIUM CITRATE 300 ML BOTTLE PO PRN (13:23)
[2018-03-14] MEDS ORDERED: guaiFENesin/D-METHORPHAN HB 10 ML UNIT-DOSE CUPS PO PRN (13:23)
[2018-03-14] MEDS ORDERED: P-EPHED 60MG/TRIPROLIDI 2.5MG TABLET PO PRN (13:23)
[2018-03-14] MEDS ORDERED: cloNIDine HCL 0.1 MG TABLET PO PRN (13:24)
--- NOTE | 2018-03-14 13:59 | HP ---
Psychiatrist Admission - Data Date of interview: 03/14/18 Admission source: [facility] Identifying data: This is the first admission to [address] [place] [address] rehabilitation for this 57 years old AA single father of 1 month old daughter, patient resides with his sister,unemployed. Medical History: Significant for HTN. Psychiatric History: Patient denies. Physical/Sexual Abuse/Trauma History: Patient denies. Vital Signs: Vital Signs - 24 hr 03/14/18 11:45 Temperature 97.7 F Pulse Rate 78 Respiratory 20 Rate Blood Pressure 141/92 Allergies/Adverse Reactions: Allergies Allergy/AdvReac Type Severity Reaction Status Date / Time tomato AdvReac Verified 03/14/18 12:48 Date of last physical exam: 03/14/18 Concur with the findings of this exam: Yes - Substance Abuse/Tx History Hx Alcohol Use: Yes (drinking since 19 yo,beer,wine first,then vodka) Hx Substance Use: Yes (cocaine since 35 yo,) Substance Use Type: Alcohol, Cocaine Hx Substance Use Treatment: Yes (reports almost 10 yeqrs of abstinence) Mental Status Exam - Mental Status Exam Alert and Oriented to: Time, Place, Person Cognitive Function: Grossly Intact Patient Appearance: Well Groomed Mood: Euthymic Affect: Mood Congruent, Normal Range Patient Behavior: Cooperative Speech Pattern: Clear Voice Loudness: Normal Thought Process: Goal Oriented Thought Disorder: Not Present Hallucinations: Denies Suicidal Ideation: Denies Homicidal Ideation: Denies Insight/Judgement: Fair Sleep: Fair Appetite: Good Muscle strength/Tone: Normal Gait/Station: Normal Psychiatric Findings - Problem List ([place] 1, 2,3) (1) Alcohol dependence Current Visit: Yes Status: Chronic Qualifiers: Substance use status: uncomplicated Qualified Code(s): F10.20 - Alcohol dependence, uncomplicated (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
[2018-03-14 15:38] LABS: ALBUMIN 3.9 g/dl (3.4-5.0); ALK PHOS 120 U/L (45-117); ANION GAP 8 MMOL/L (8-16); BILIRUBIN,TOTAL 0.9 mg/dL (0.2-1); BLOOD UREA NITROGEN 20 mg/dL (7-18); CALCIUM 9.9 mg/dL (8.5-10.1); CHLORIDE 103 mmol/L (98-107); CO2 29 mmol/L (21-32); CREATININE 1.3 mg/dL (0.55-1.3); GLUCOSE,RANDOM 100 mg/dL (74-106); SGOT/AST 38 U/L (15-37); SGPT/ALT 31 U/L (13-61); SODIUM 140 mmol/L (136-145); TOT PROT 7.9 g/dl (6.4-8.2)
[2018-03-14 15:43] LABS: HEMATOCRIT 38.3 % (35.4-49); HEMOGLOBIN 11.8 GM/dL (11.7-16.9); MCH 22.7 pg (25.7-33.7); MCHC 30.9 g/dl (32.0-35.9); MEAN CELL VOLUME 73.3 fl (80-96); MEAN PLT VOLUME 8.8 fl (7.5-11.1); PLATELET COUNT 267 K/MM3 (134-434); RBC 5.22 M/mm3 (4.00-5.60); RDW 15.7 % (11.9-15.9); WHITE BLOOD COUNT 10.8 K/mm3 (4.0-10.0)
[2018-03-14] MEDS: THIAMINE HCL 100 MG TABLET (FP) PO SCH (21:23)
[2018-03-14] MEDS: MELATONIN 5 MG TABLETS PO PRN (21:23)
[2018-03-14] MEDS: MAGNESIUM HYDROX 2400MG/30ML ORAL SUSPENSION 30 ML CUP PO PRN (21:25)
[2018-03-15] MEDS: IBUPROFEN 400 MG TABLET (FP) PO PRN ×2 (06:40→21:18)
[2018-03-15] MEDS: PRENATAL VITAMINS W/ FOLIC ACID TABLET (FP) PO SCH (10:10)
[2018-03-15] MEDS: THIAMINE HCL 100 MG TABLET (FP) PO SCH (21:18)
[2018-03-16] MEDS: PRENATAL VITAMINS W/ FOLIC ACID TABLET (FP) PO SCH (10:00)
[2018-03-16] MEDS: IBUPROFEN 400 MG TABLET (FP) PO PRN (10:00)
[2018-03-16] MEDS: THIAMINE HCL 100 MG TABLET (FP) PO SCH (21:13)
[2018-03-17] MEDS: PRENATAL VITAMINS W/ FOLIC ACID TABLET (FP) PO SCH (10:17)
[2018-03-17] MEDS: IBUPROFEN 400 MG TABLET (FP) PO PRN (10:18)
[2018-03-17] MEDS: MELATONIN 5 MG TABLETS PO PRN (21:15)
[2018-03-17] MEDS: THIAMINE HCL 100 MG TABLET (FP) PO SCH (21:15)
[2018-03-18] MEDS: PRENATAL VITAMINS W/ FOLIC ACID TABLET (FP) PO SCH (10:08)
[2018-03-18] MEDS: IBUPROFEN 400 MG TABLET (FP) PO PRN ×2 (10:09→21:21)
[2018-03-18] MEDS: THIAMINE HCL 100 MG TABLET (FP) PO SCH (21:21)
[2018-03-18] MEDS: MELATONIN 5 MG TABLETS PO PRN (21:23)
[2018-03-18] MEDS: MAGNESIUM HYDROX 2400MG/30ML ORAL SUSPENSION 30 ML CUP PO PRN (21:24)
[2018-03-19 06:56] VITALS: BP 154/97; PULSE 61; TEMP 97.2
[2018-03-19] MEDS: PRENATAL VITAMINS W/ FOLIC ACID TABLET (FP) PO SCH (10:01)
== END 2018-03-19 10:10 | disposition left against medical advice (07) | DRG 58 ==
LOC: YASAS 10:54 → Y5N 13:08
PROVIDERS: ADMIT Psychiatry & Neurology Psychiatry; ATTEND Psychiatry & Neurology Psychiatry
PROC: HZ42ZZZ Group Counseling for Substance Abuse Treatment, Cognitive-Behavioral (ICD-10-PCS; principal; 2018-03-14)
DX: F10.282 Alcohol dependence with alcohol-induced sleep disorder (principal); F14.20 Cocaine dependence, uncomplicated; F17.213 Nicotine dependence, cigarettes, with withdrawal; I10 Essential (primary) hypertension
CPT/HCPCS: 36415; 80053; 85027; 86593